=== PATIENT | male | born 1955 | race Caucasian/White ===

== ENCOUNTER 2020-05-08 11:41 | Emergency (ER) | payer OTHER, SELFPAY ==
--- NOTE | 2020-05-08 14:08 | ED_ITS ---
HPI - Abdominal Pain General Chief Complaint: Abdominal Pain Stated Complaint: back pain Time Seen by Provider: 05/08/20 14:08 Source: patient Mode of arrival: ambulatory Limitations: no limitations History of Present Illness HPI narrative: Patient with left lower abdominal pain yesterday. no Flank pain, no dysuria, no hematuria, no fever denies vomiting and diarrhea MD elicited complaint: abdominal pain Onset (ago): day(s) Quality: stabbing Radiation: LLQ Related Data Previous Rx's Medication Instructions Recorded ciprofloxacin HCl [Cipro] 500 mg PO BID #20 tab 05/08/20 metronidazole [Flagyl] 500 mg PO TID #30 tab 05/08/20 Allergies Allergy/AdvReac Type Severity Reaction Status Date / Time No Known Allergies Allergy Verified 05/08/20 14:26 Review of Systems Constitutional: Reports no additional constitutional complaints Eyes: Reports no additional eye complaints Denies dizziness Cardiovascular: Reports no additional cardiovascular complaints Respiratory: Reports as per HPI Gastrointestinal: Reports no additional gastrointestinal complaints Musculoskeletal: Reports no additional musculoskeletal complaints Skin/Breast: Denies rash Reports system reviewed and no additional complaints, except as documented, Denies dizziness and Denies Sensory deficit (Neuro) Psychiatric: Denies anxiety Physical Exam Vital Signs: Vital Signs: Vital Signs Temp Pulse Resp BP Pulse Ox 05/08/20 14:29 98.2 F 70 147/94 H 98 05/08/20 14:21 98.2 F 69 18 147/94 H 98 Body Mass Index 32.5 Const: General: healthy appearing Nutritional Appearance: average body habitus Orientation/consciousness: oriented to person and patient oriented x3 Limitations: no limitations HENMT: Head: Yes normal to inspection Ears: external ears normal General nose exam: Normal external nose present Mouth: Normal oral and palatal mucosa present and oropharynx normal Throat: Yes posterior oropharynx normal Eyes: General: appearance normal, both eyes and all related structures Neck: Other: supple Neck: Yes normal visual inspection Chest: Chest palpation & inspection: normal inspection of the chest Resp: Auscultation: clear to auscultation bilaterally Cardio: Jugular venous distension: no JVD Rate: regular rate Rhythm: regular rhythm Heart sounds: S1 normal heart sound present and S2 normal heart sound present GI: Other: left lower quadrant pain with some guarding Inspection: Yes normal to inspection Auscultation: normal bowel sounds : General: Yes no CVA tenderness Back/Spine/Pelvis: Back: no CVA tenderness Skin: General skin exam: no rashes or lesions noted Neuro: General: oriented to person and patient oriented x3 Cranial nerves: Yes CN's II-XII intact bilaterally Motor exam (neuro): 5/5 motor strength present throughout Sensory Exam: No Sensory deficit (Neuro) Extrem: General: Yes normal to inspection Psych: Appearance: grossly normal Course Course Course Narrative: appear more comfortable MDM - Abdominal Pain MDM Narrative Medical decision making narrative: patient with no clinical evidence of hernia, not acting like kidney stone, CT with diverticulitis, will dc home Differential Diagnosis Differential diagnosis: Likely diverticulitis and renal colic Lab Data Result diagrams: 05/08/20 14:44 05/08/20 14:44 Labs: Lab Results 05/08/20 05/08/20 05/08/20 Range/Units 14:44 14:44 14:44 WBC 11.9 H (4.8-10.8) X10*3/uL RBC 5.44 (4.60-5.80) X10*6/uL Hgb 15.6 (14.0-18.0) g/dl Hct 47.4 (42-52) % MCV 87.1 (80-98) fL MCH 28.7 (27.0-33.0) pg MCHC 32.9 (31.0-36.0) g/dl RDW 12.6 (11.0-16.0) % Plt Count 296 (160-400) X10*3/uL MPV 9.6 (9.4-12.4) fL Immature Gran % (Auto) 0.3 (0.0-0.4) % Neut % (Auto) 61.6 (45-73) % Lymph % (Auto) 25.3 (20-40) % [place] % (Auto) 9.9 (2-11) % Eos % (Auto) 2.4 (0-4) % Baso % (Auto) 0.5 (0-2) % Lymph # (Auto) 3.0 (1.2-4.9) X10*3/uL [place] # (Auto) 1.2 (0.1-1.2) X10*3/uL Eos # (Auto) 0.3 (0.0-0.4) X10*3/uL Baso # (Auto) 0.1 (0.0-0.2) X10*3/uL Abs Immat Gran (auto) 0.03 (0.00-0.03) X10*3/uL Absolute Neuts (auto) 7.4 (2.0-8.3) X10*3/uL Absolute Nucleated RBC 0.000 (0.0-0.012) X10*3/uL Nucleated RBC % (auto) 0.0 (0.0-0.2) /100WBC Sodium 139 (135-145) mmol/L Potassium 4.4 (3.3-5.1) mmol/l Chloride 103 (96-108) mmol/L Carbon Dioxide 27 (22-29) mmol/L Anion Gap 13 (12-20) BUN 13 (9-16) mg/dL Creatinine 1.08 (0.5-1.4) mg/dL Estim Creat Clear Calc 81.6 Estimated GFR > 60 Random Glucose 90 (60-115) mg/dL Calcium 8.9 (8.4-10.2) mg/dL Urine Color YELLOW Urine Appearance CLEAR Urine pH 6.0 (5.0-8.0) Ur Specific [place] 1.025 (1.005-1.025) Urine Protein NEG (NEG-TRACE) MG/DL Urine Glucose (UA) NEG (NEG) MG/DL Urine Ketones NEG (NEG) MG/DL Urine Blood 1+ H (NEG) Urine Nitrite NEG (NEG) Ur Leukocyte Esterase NEG (NEG) Urine RBC 1-4 (0) /HPF Urine WBC 0-2 (0-4) /HPF Ur Squamous Epith Cells NONE /LPF Urine Bacteria TRACE /LPF Urine Mucus 1+ /LPF Discharge Plan Discharge Clinical Impression: Diverticulitis Patient Disposition: Home, Self-Care Instructions: Diverticulitis (ED) Additional Instructions: clear liquid diet for 72 hours. Must follow up pulmonary nodule with your doctor Prescriptions: New ciprofloxacin HCl [Cipro] 500 mg tablet 500 mg PO BID Qty: 20 RF: 0 metronidazole [Flagyl] 500 mg tablet 500 mg PO TID Qty: 30 RF: 0 PMFSH Past Medical History Surgical History History of rotator cuff surgery Social History Social History Smoking Status: Never smoker Use of substances other than those prescribed or required for medical reasons: No Advance Directives: No Advance Directives Information Provided: No
[2020-05-08 14:21] VITALS: BP 147/94; PULSE 69; RESP 18; TEMP 36.8; O2SAT 98; BMI 32.5
--- NOTE | 2020-05-08 14:26 | CT_ITS ---
EXAMINATION: CT ABDOMEN AND PELVIS WITHOUT CONTRAST CLINICAL INFORMATION: Left lower quadrant pain with guarding COMPARISON: None TECHNIQUE: Multidetector volumetric imaging was performed from the superior aspect of the liver through the pubic symphysis. Sagittal and coronal reformatted images were obtained on the technologist's workstation. This CT examination was performed using dose optimization techniques as appropriate, variously including the following: *Automated exposure control *Adjustment of mA and/or kV according to patient size (this includes techniques or standardized protocols for targeted exams where dose is matched to indication/reason for exam; i.e. extremities or head) *Use of iterative reconstruction technique DLP: 794 mGy-cm FINDINGS: LUNG BASES: The visualized lung bases are unremarkable aside from the presence of a 5 mm subpleural posterior lateral left lower lobe nodule (series 4 image 68). LIVER, GALLBLADDER, AND BILIARY TREE: The liver is normal in size, shape, and attenuation. No focal hepatic lesion or biliary ductal dilatation is present. The gallbladder is unremarkable with no evidence of radiopaque gallstones, gallbladder wall thickening, or obvious pericholecystic inflammatory changes. PANCREAS: Unremarkable. SPLEEN: Unremarkable. ADRENAL GLANDS: There is a small 1 cm benign left-sided adrenal myelolipoma. The adrenal glands appear otherwise unremarkable KIDNEYS AND URETERS: The kidneys are normal in size, shape, and attenuation. No hydronephrosis, hydroureter, or calculi seen. No perinephric stranding. BLADDER: Unremarkable. GASTROINTESTINAL TRACT: There is evidence of colonic diverticulosis most prominent in the sigmoid. Diverticulitis is present with thickening at the junction of the descending colon and proximal sigmoid with associated inflammatory changes in the surrounding fat. No abscess or extraluminal air is seen. The remainder of the colon appears unremarkable. The appendix is normal. The small bowel and visualized stomach appear normal. ABDOMINAL WALL: Bilateral small direct inguinal hernias are present containing only fat, right greater than left. A tiny periumbilical hernia seen containing only fat. LYMPH NODES: Normal. VASCULAR: Unremarkable. PELVIC VISCERA: The prostate is enlarged with central calcifications measuring 6.4 x 4.8 x 5.8 cm. The seminal vesicles appear normal. No free pelvic fluid is seen. OSSEOUS STRUCTURES: Unremarkable. CT/CT abdomen pelvis wo con IMPRESSION: 1. Acute uncomplicated colonic diverticulitis at junction of descending colon and sigmoid. 2. Benign 1 cm left adrenal myelolipoma. 3. Bilateral small inguinal hernias containing only fat along with a tiny periumbilical hernia containing only fat. 4. BPH 5. 5 mm left lower lobe lung nodule. Only in high risk patients which follow up even be considered and is still optional. According to the UPDATED 2017 Fleischner Society recommendations, the advised follow-up imaging for solid nodules < 6 mm is: LOW RISK PATIENT: No routine follow-up. HIGH RISK PATIENT: Optional CT at 12 months.
[2020-05-08 14:29] VITALS: BP 147/94; PULSE 70; TEMP 36.8; O2SAT 98
--- NOTE | 2020-05-08 14:34 | PC.NURSE ---
PT REPORTING LLQ PAIN SINCE YESTERDAY SQUEEZING , WORSE WITH MOVEMNT 10/10, 6/10 AT REST. NO HX GI ISSUES. DENIES URINARY SXS. DENIES N/V/D, FEVERS. LAST BM 3 HRS AGO. VS WNL. A&OX3, SPEAKING IN CLEAR FULL SENTENCES. RESP EVEN AND NONLABOURED. LABS TO BE DRAWN. PT PROVIDING URINE SPECIMEN AT THIS TIME.
[2020-05-08 14:50] LABS: MANUAL DIFF FLAG NO
[2020-05-08 14:52] LABS: Basophils Absolute Auto 0.1 X10*3/uL (0.0-0.2); Basophils Percent Auto 0.5 % (0-2); Eosinophils Absolute Auto 0.3 X10*3/uL (0.0-0.4); Eosinophils Percent Auto 2.4 % (0-4); Hematocrit 47.4 % (42-52); Hemoglobin 15.6 g/dl (14.0-18.0); Imm Gran Abs Auto 0.03 X10*3/uL (0.00-0.03); Imm Gran Pct Auto 0.3 % (0.0-0.4); Lymphocytes Percent Auto 25.3 % (20-40); Mean Corpuscular HGB Conc 32.9 g/dl (31.0-36.0); Mean Corpuscular Hemoglobin 28.7 pg (27.0-33.0); Mean Corpuscular Volume 87.1 fL (80-98); Mean Platelet Volume 9.6 fL (9.4-12.4); Monocytes Absolute Auto 1.2 X10*3/uL (0.1-1.2); Monocytes Percent Auto 9.9 % (2-11); Neutrophils Absolute Auto 7.4 X10*3/uL (2.0-8.3); Neutrophils Percent Auto 61.6 % (45-73); Platelet Count 296 X10*3/uL (160-400); Red Blood Count 5.44 X10*6/uL (4.60-5.80); Red Cell Distribution Width 12.6 % (11.0-16.0); White Blood Count 11.9 X10*3/uL (4.8-10.8)
[2020-05-08 14:53] LABS: Color Urine YELLOW; Glucose Urine UA NEG (NEG); Leukocyte Esterase Urine NEG (NEG); Nitrite Urine NEG (NEG); Specific Gravity - Urine 1.025 (1.005-1.025); Urine Blood 1+ (NEG); Urine Ketones NEG (NEG); Urine Protein NEG (NEG-TRACE)
[2020-05-08 14:54] LABS: Appearance Urine CLEAR
[2020-05-08 15:04] LABS: Bacteria Urine TRACE /LPF; Mucus Urine 1+ /LPF; WBC Urine 0-2 /HPF (0-4)
[2020-05-08] MEDS: Ketorolac Tromethamine 30 MG/ML VIAL IVPUSH (15:10)
[2020-05-08 15:17] LABS: Anion Gap 13 (12-20); Blood Urea Nitrogen 13 mg/dL (9-16); Calcium 8.9 mg/dL (8.4-10.2); Carbon Dioxide 27 mmol/L (22-29); Chloride 103 mmol/L (96-108); Creatinine Clr Calc Pharmacy 81.6; Estimated Glomerular Filt Rate > 60; Glucose Random 90 mg/dL (60-115); Potassium 4.4 mmol/l (3.3-5.1); Sodium 139 mmol/L (135-145)
--- NOTE | 2020-05-08 16:04 | PC.NURSE ---
PT RESTING COMFORTABLY IN STRETCHER. AWAITING CT RESULTS
[2020-05-08] MEDS: metroNIDAZOLE 500 MG TABLET PO (16:50)
[2020-05-08] MEDS: levoFLOXacin 500 MG TABLET PO (16:50)
[2020-05-08 16:51] VITALS: BP 154/94; PULSE 79; RESP 16; TEMP 36.8; O2SAT 99
== END 2020-05-08 17:06 | disposition home or self-care (01) ==
PROVIDERS: Emergency Provider Emergency Medicine; PCP Student in an Organized Health Care Education/Training Program
DX: K57.32 Diverticulitis of large intestine without perforation or abscess without bleeding (principal); M54.5 Low back pain; Z79.899 Other long term (current) drug therapy
CPT/HCPCS: 36415; 74176; 80048; 81001; 85025; 96374; 99284; J1885

== ENCOUNTER 2020-05-21 08:59 | Outpatient (REF) | payer OTHER, SELFPAY ==
[2020-05-21 10:53] LABS: Cholesterol 168 mg/dL; HDL Cholesterol 35 mg/dL; LDL Cholesterol Calculated 94 mg/dl; Triglycerides 198 mg/dL
[2020-05-21 11:16] LABS: Prostate Specific Antigen 2.42 ng/mL (<0.05-4.0)
== END 2020-05-21 09:00 | disposition home or self-care (01) ==
LOC: HO.10HDL 08:59
PROVIDERS: Visit Provider Internal Medicine
DX: E78.5 Hyperlipidemia, unspecified (principal); N40.0 Benign prostatic hyperplasia without lower urinary tract symptoms; K57.90 Diverticulosis of intestine, part unspecified, without perforation or abscess without bleeding
CPT/HCPCS: 80061; 84153

== ENCOUNTER 2020-07-06 12:36 | Outpatient (REF) | payer OTHER, SELFPAY ==
[2020-07-06 14:02] LABS: Basophils Absolute Auto 0.1 X10*3/uL (0.0-0.2); Basophils Percent Auto 0.8 % (0-2); Eosinophils Absolute Auto 0.5 X10*3/uL (0.0-0.4); Eosinophils Percent Auto 4.9 % (0-4); Hematocrit 44.8 % (42-52); Hemoglobin 14.6 g/dl (14.0-18.0); Imm Gran Abs Auto 0.03 X10*3/uL (0.00-0.03); Imm Gran Pct Auto 0.3 % (0.0-0.4); Lymphocytes Absolute Auto 2.5 X10*3/uL (1.2-4.9); Lymphocytes Percent Auto 25.7 % (20-40); MANUAL DIFF FLAG NO; Mean Corpuscular HGB Conc 32.6 g/dl (31.0-36.0); Mean Corpuscular Hemoglobin 28.2 pg (27.0-33.0); Mean Corpuscular Volume 86.5 fL (80-98); Mean Platelet Volume 10.4 fL (9.4-12.4); Monocytes Absolute Auto 1.1 X10*3/uL (0.1-1.2); Monocytes Percent Auto 10.9 % (2-11); Neutrophils Absolute Auto 5.6 X10*3/uL (2.0-8.3); Neutrophils Percent Auto 57.4 % (45-73); Platelet Count 292 X10*3/uL (160-400); Red Blood Count 5.18 X10*6/uL (4.60-5.80); Red Cell Distribution Width 13.2 % (11.0-16.0); White Blood Count 9.7 X10*3/uL (4.8-10.8)
[2020-07-06 14:23] LABS: Anion Gap 10 (12-20); Blood Urea Nitrogen 17 mg/dL (9-16); C Reactive Protein 2.17 mg/dL (< or = 0.50); Calcium 8.9 mg/dL (8.4-10.2); Carbon Dioxide 29 mmol/L (22-29); Chloride 105 mmol/L (96-108); Estimated Glomerular Filt Rate > 60; Glucose Random 99 mg/dL (60-115); Sodium 140 mmol/L (135-145); Uric Acid 5.6 mg/dL (3.4-7.0)
== END 2020-07-06 12:37 | disposition home or self-care (01) ==
LOC: HO.10HDL 12:36
PROVIDERS: PCP Internal Medicine; Visit Provider Internal Medicine
DX: M25.571 Pain in right ankle and joints of right foot (principal); M25.471 Effusion, right ankle
CPT/HCPCS: 36415; 80048; 84550; 85025; 86140

== ENCOUNTER 2020-09-17 10:28 | Outpatient (REF) | payer OTHER, SELFPAY ==
--- NOTE | ~2020-09-17 | FL_ITS ---
EXAMINATION: XR GI SERIES CLINICAL INFORMATION: Dysphagia. COMPARISON: None TECHNIQUE: Routine upper GI air contrast study was performed. FINDINGS: Following oral administration of thick barium and effervescent granules, there is normal propagation of bolus from the oral cavity through the pharynx, esophagus into stomach without any evidence of obstruction, narrowing or stricture. The course, caliber and peristalsis of the esophagus is normal. On placing patient supine and prone lying, there is normal course, caliber and peristalsis of the stomach. There is a small hiatal hernia without reflux. The duodenal bulb and the sweep is normal in its course and caliber. The mucosal pattern of the stomach and the duodenum is normal. However, there are mild gastric secretions present. FLUOROSCOPY TIME: 1.7 minutes DOSE AREA PRODUCT: 41.368 uGy-m2 (microgray-meter squared) FL/FL upper GI series IMPRESSION: Small hiatal hernia. Increased gastric secretions likely secondary to gastritis. No focal gastroduodenal erosions or ulceration seen.
== END 2020-09-17 10:29 | disposition home or self-care (01) ==
LOC: HO.XRAY 10:28
PROVIDERS: PCP Internal Medicine; Visit Provider Internal Medicine
DX: R13.10 Dysphagia, unspecified (principal)
CPT/HCPCS: 74240

== ENCOUNTER 2021-02-25 10:25 | Outpatient (REF) | payer OTHER, SELFPAY ==
--- NOTE | ~2021-02-25 | XR_ITS ---
EXAMINATION: XR CHEST CLINICAL INFORMATION: Cough. Congestion. Evaluate for infiltrate. COMPARISON: None TECHNIQUE: 2 views of the chest were obtained. FINDINGS: The lungs are clear. The cardiomediastinal silhouette is normal in size. There is no pleural effusion or pneumothorax. No acute osseous abnormality. XR/XR chest 2V IMPRESSION: No acute cardiopulmonary findings.
== END 2021-02-25 10:26 | disposition home or self-care (01) ==
LOC: HO.XRAY 10:25
PROVIDERS: PCP Internal Medicine; Visit Provider Internal Medicine
DX: R05 Cough (principal); R09.89 Other specified symptoms and signs involving the circulatory and respiratory systems
CPT/HCPCS: 71046

== ENCOUNTER 2021-06-04 10:06 | Emergency (ER) | payer OTHER, SELFPAY ==
--- NOTE | ~2021-06-04 | XR_ITS ---
EXAMINATION: XR FOOT, RIGHT CLINICAL INFORMATION: Injury to the right foot. Pain in the right foot 4th and 5th digits. COMPARISON: None TECHNIQUE: AP, lateral, and oblique views of the right foot. FINDINGS: Comminuted fractures through the proximal and mid shaft of the 4th proximal phalanx is noted without significant displacement. No additional fractures are noted. Joints are unremarkable. Small plantar calcaneal spur. No evidence of soft tissue air or radiopaque foreign body. Degenerative changes are noted at the talonavicular articulation with subarticular cystic changes and articular surface irregularity. XR/XR foot RT min 3V IMPRESSION: Comminuted fractures through the proximal and mid shaft of the left foot 4th proximal phalanx, without intra-articular extension.
[2021-06-04 10:51] VITALS: BP 131/76; PULSE 74; RESP 16; TEMP 36.3; O2SAT 97; BMI 31.3
--- NOTE | 2021-06-04 12:15 | ED.LOWEXIN ---
HPI - Extremity Injury (Lower) General Chief Complaint: Extremity Injury, Lower Stated Complaint: toe injury Time Seen by Provider: 06/04/21 12:14 History of Present Illness HPI Narrative: Patient complains of right 4th toe pain after accidentally kicking the faucet in the shower this morning, no other injury he did not fall and there is no other complaint Related Data Previous Rx's Medication Instructions Recorded ciprofloxacin HCl 500 mg tablet 500 mg PO BID #20 tab 05/08/20 (Cipro) metronidazole 500 mg tablet 500 mg PO TID #30 tab 05/08/20 (Flagyl) Allergies Allergy/AdvReac Type Severity Reaction Status Date / Time No Known Allergies Allergy Verified 05/08/20 14:26 Review of Systems Review of Systems: Positive for right 4th toe pain Negatives are no headache no head injury no neck pain no back pain no numbness weakness or tingling no other extremity pain or injury Yes all other systems are reviewed and are negative PMFSH Past Medical History Source: nursing notes reviewed Surgical History History of rotator cuff surgery Social History Social History Advance Directives: No Advance Directives Information Provided: Yes Physical Exam Vital Signs: Vital Signs: Last Vital Signs Temp 97.4 F 06/04/21 10:51 Pulse 74 06/04/21 10:51 Resp 16 06/04/21 10:51 BP 131/76 06/04/21 10:51 Pulse Ox 97 06/04/21 10:51 Body Mass Index 31.3 General appearance no acute distress Head is normocephalic atraumatic Neck is supple nontender Respiratory no distress Extremities full range of motion x4 The left 4th toe has mild ecchymosis tenderness and minimal swelling in the proximal phalanx, skin is intact no obvious deformity and neurovascular intact Other extremities normal Neuro no focal motor or sensory deficits Course Course Course Narrative: X-ray showed a minimally displaced left 4th toe proximal phalanx fracture, jabier tape and postop shoe were provided Discharge Plan Discharge Clinical Impression: Closed fracture of fourth toe of right foot Patient Disposition: Home, Self-Care Additional Instructions: Activity as tolerated is okay Use postop shoe for comfort, or you can use a regular shoe as well if it is comfortable Follow with orthopedist or workers compensation administrator as needed Toe fractures usually heal well with out any major treatment Prescriptions: No Action ciprofloxacin HCl [Cipro] 500 mg tablet 500 mg PO BID Qty: 20 RF: 0 metronidazole [Flagyl] 500 mg tablet 500 mg PO TID Qty: 30 RF: 0 Referrals: Shakira Lewis PA-C [Physician [employer]] - 2 days Augustine Osborne DPM [Physician] - 2 days Interventions: ED Discharge Assessment Last Done: 06/04/21 12:39 Discharge Date/Time: 06/04/21 12:40
== END 2021-06-04 12:40 | disposition home or self-care (01) ==
PROVIDERS: Emergency Provider Emergency Medicine Emergency Medical Services; PCP Internal Medicine
DX: S92.511A Displaced fracture of proximal phalanx of right lesser toe(s), initial encounter for closed fracture (principal); W22.09XA Striking against other stationary object, initial encounter; Y93.E1 Activity, personal bathing and showering; Y92.002 Bathroom of unspecified non-institutional (private) residence as the place of occurrence of the external cause; Y99.9 Unspecified external cause status
CPT/HCPCS: 73630; 99283

== ENCOUNTER 2021-06-20 07:37 | Outpatient (REF) | payer OTHER, SELFPAY ==
--- NOTE | ~2021-06-20 | XR_ITS ---
EXAMINATION: XR FOOT, RIGHT CLINICAL INFORMATION: Displaced fracture of the fifth metatarsal COMPARISON: 06/04/2021 TECHNIQUE: AP, lateral, and oblique views of the right foot. FINDINGS: The fourth digit proximal phalanx fracture is again noted with unchanged alignment from prior. Slight cortical disruption again seen. Mild fourth digit soft tissue swelling. There is joint space narrowing at the talonavicular joint with osteophyte formation. Joint spaces are otherwise maintained. Small plantar heel spur. XR/XR foot RT min 3V IMPRESSION: Unchanged alignment of the fourth digit proximal phalanx fracture. Degenerative change at the talonavicular joint.
== END 2021-06-20 07:38 | disposition home or self-care (01) ==
LOC: HO.HOSX 07:37
PROVIDERS: Visit Provider Physician Assistant
DX: S92.911D Unspecified fracture of right toe(s), subsequent encounter for fracture with routine healing (principal)
CPT/HCPCS: 73630; 99202

== ENCOUNTER 2021-08-23 08:08 | Outpatient (REF) | payer OTHER, SELFPAY ==
[2021-08-23 10:25] LABS: MANUAL DIFF FLAG NO
[2021-08-23 10:26] LABS: Basophils Percent Auto 0.6 % (0-2); Eosinophils Absolute Auto 0.3 X10*3/uL (0.0-0.4); Eosinophils Percent Auto 4.6 % (0-4); Hematocrit 45.8 % (42.0-52.0); Imm Gran Abs Auto 0.02 X10*3/uL (0.00-0.03); Imm Gran Pct Auto 0.3 % (0.0-0.4); Lymphocytes Absolute Auto 2.6 X10*3/uL (1.2-4.9); Lymphocytes Percent Auto 40.4 % (20-40); Mean Corpuscular HGB Conc 32.8 g/dl (31.0-36.0); Mean Corpuscular Hemoglobin 28.6 pg (27.0-33.0); Mean Corpuscular Volume 87.4 fL (80.0-98.0); Mean Platelet Volume 9.7 fL (9.4-12.4); Monocytes Absolute Auto 0.7 X10*3/uL (0.1-1.2); Monocytes Percent Auto 10.4 % (2-11); Neutrophils Absolute Auto 2.8 x10*3/uL (2.0-8.3); Neutrophils Percent Auto 43.7 % (45-73); Platelet Count 279 X10*3/uL (160-400); Red Blood Count 5.24 X10*6/uL (4.60-5.80); Red Cell Distribution Width 12.7 % (11.0-16.0); White Blood Count 6.3 X10*3/uL (4.8-10.8)
[2021-08-23 10:39] LABS: Alanine Aminotransferase 16 U/L (0-40); Albumin Level 3.9 g/dL (3.5-5.0); Alkaline Phosphatase 53 U/L (39-117); Anion Gap 11 (12-20); Aspartate Amino Transferase 19 U/L (5-37); Bilirubin Total 1.4 mg/dL (0.0-1.0); Blood Urea Nitrogen 17 mg/dL (9-16); Calcium 8.9 mg/dL (8.4-10.2); Carbon Dioxide 26 mmol/L (22-29); Chloride 106 mmol/L (96-108); Cholesterol 204 mg/dL; Estimated Glomerular Filt Rate > 60; Glucose Fasting 91 mg/dL (60-99); HDL Cholesterol 39 mg/dL; LDL Cholesterol Calculated 137 mg/dl; Potassium 4.4 mmol/L (3.3-5.1); Sodium 139 mmol/L (135-145); Total Protein 6.4 g/dL (6.5-8.0); Triglycerides 144 mg/dL
[2021-08-23 10:58] LABS: Prostate Specific Antigen Scr 1.93 ng/mL (<0.05-4.0)
== END 2021-08-23 08:09 | disposition home or self-care (01) ==
LOC: HO.10HDL 08:08
PROVIDERS: Visit Provider Internal Medicine
DX: Z12.5 Encounter for screening for malignant neoplasm of prostate (principal); K21.9 Gastro-esophageal reflux disease without esophagitis; R35.1 Nocturia; M54.2 Cervicalgia
CPT/HCPCS: 36415; 80053; 80061; 84153; 85025

== ENCOUNTER 2021-11-24 09:24 | Outpatient (REF) | payer MEDICAID, SELFPAY ==
[2021-11-24 10:18] LABS: Cholesterol 191 mg/dL; HDL Cholesterol 37 mg/dL; LDL Cholesterol Calculated 109 mg/dl; Triglycerides 225 mg/dL
== END 2021-11-24 09:25 | disposition home or self-care (01) ==
LOC: HO.LAB 09:24
PROVIDERS: PCP Internal Medicine; Visit Provider Internal Medicine
DX: E78.00 Pure hypercholesterolemia, unspecified (principal)
CPT/HCPCS: 36415; 80061

== ENCOUNTER 2022-06-29 11:26 | Outpatient (REF) | payer MEDICAID, SELFPAY ==
[2022-06-29 13:40] LABS: MANUAL DIFF FLAG NO
[2022-06-29 13:41] LABS: Basophils Absolute Auto 0.1 X10*3/uL (0.0-0.2); Basophils Percent Auto 0.9 % (0-2); Eosinophils Absolute Auto 0.3 X10*3/uL (0.0-0.4); Hematocrit 47.4 % (42.0-52.0); Hemoglobin 15.5 g/dl (14.0-18.0); Imm Gran Abs Auto 0.02 X10*3/uL (0.00-0.03); Imm Gran Pct Auto 0.3 % (0.0-0.4); Lymphocytes Absolute Auto 2.1 X10*3/uL (1.2-4.9); Mean Corpuscular HGB Conc 32.7 g/dl (31.0-36.0); Mean Corpuscular Hemoglobin 28.9 pg (27.0-33.0); Mean Corpuscular Volume 88.4 fL (80.0-98.0); Mean Platelet Volume 10.1 fL (9.4-12.4); Monocytes Absolute Auto 0.7 X10*3/uL (0.1-1.2); Monocytes Percent Auto 10.8 % (2-11); Neutrophils Absolute Auto 3.5 x10*3/uL (2.0-8.3); Platelet Count 313 X10*3/uL (160-400); Red Blood Count 5.36 X10*6/uL (4.60-5.80); Red Cell Distribution Width 13.2 % (11.0-16.0); White Blood Count 6.7 X10*3/uL (4.8-10.8)
[2022-06-29 14:04] LABS: Prothrombin Time 11.6 SEC (10.0-13.1)
[2022-06-29 14:06] LABS: Partial Thromboplastin Time 33.6 SEC (26.0-36.4)
[2022-06-29 14:57] LABS: Alanine Aminotransferase 17 U/L (0-40); Albumin Level 4.1 g/dL (3.5-5.0); Alkaline Phosphatase 61 U/L (39-117); Anion Gap 12 (12-20); Aspartate Amino Transferase 18 U/L (5-37); Blood Urea Nitrogen 16 mg/dL (9-16); Calcium 9.2 mg/dL (8.4-10.2); Carbon Dioxide 28 mmol/L (22-29); Chloride 105 mmol/L (96-108); Estimated Glomerular Filt Rate > 60; Glucose Random 91 mg/dL (60-115); Iron 92 mcg/dL (45-160); Percent Iron Saturation 33 % (15-50); Potassium 4.7 mmol/L (3.3-5.1); Sodium 140 mmol/L (135-145); Total Iron Binding Capacity 278 mcg/dL (228-428); Total Protein 6.6 g/dL (6.5-8.0); Unsaturated Iron Binding 186 ug/dL
== END 2022-06-29 11:27 | disposition home or self-care (01) ==
LOC: HO.10HDL 11:26
PROVIDERS: Visit Provider Internal Medicine
DX: R04.0 Epistaxis (principal)
CPT/HCPCS: 36415; 80053; 83540; 85025; 85610; 85730

== ENCOUNTER 2022-07-11 07:50 | Outpatient (REF) | payer MEDICAID, SELFPAY ==
--- NOTE | ~2022-07-11 | CT_ITS ---
EXAMINATION: CT MAXILLOFACIAL WITHOUT CONTRAST CLINICAL INFORMATION: Severe epistaxis. COMPARISON: None. TECHNIQUE: Multidetector helical imaging was performed in the axial plane with generation of coronal and sagittal reformatted images. This CT examination was performed using dose optimization techniques as appropriate, variously including the following: *Automated exposure control *Adjustment of mA and/or kV according to patient size (this includes techniques or standardized protocols for targeted exams where dose is matched to indication/reason for exam; i.e. extremities or head) *Use of iterative reconstruction technique DLP: 138 mGy-cm. FINDINGS: The frontal sinuses are clear. There is minimal ethmoid mucosal thickening. The sphenoid sinuses are clear. Maxillary sinuses are clear. The ostiomeatal units are clear. Prominent Adan cells are noted encroaching on the ethmoidal infundibula. The nasal septum is deviated towards the right. The ethmoid roofs are symmetric. The lamina papyracea are intact. The carotid impressions are covered with thin bone. No maxillary periapical disease is seen. The mastoid air cells and visualized middle ear cavities are well aerated. The orbits are normal. The TMJs are unremarkable. The imaged portions of the brain demonstrate no acute abnormality. CT/CT sinus wo IV con IMPRESSION: Minimal ethmoid mucosal thickening. Paranasal sinuses are otherwise clear without fluid levels. No evidence of sinonasal lesion. Rightward deviation of the nasal septum.
== END 2022-07-11 07:51 | disposition home or self-care (01) ==
LOC: HO.CT 07:50
PROVIDERS: PCP Internal Medicine; Visit Provider Internal Medicine
DX: R04.0 Epistaxis (principal)
CPT/HCPCS: 70486

== ENCOUNTER 2022-09-11 09:03 | Outpatient (REF) | payer MEDICAID, SELFPAY | END 2022-09-11 09:04 | disposition home or self-care (01) | LOC: HO.10HDL 09:03 | PROVIDERS: Visit Provider Internal Medicine | DX: Z13.89 Encounter for screening for other disorder (principal) ==

== ENCOUNTER 2022-09-11 09:16 | Outpatient (REF) | payer MEDICAID, SELFPAY ==
[2022-09-11 10:40] LABS: MANUAL DIFF FLAG NO
[2022-09-11 10:45] LABS: Basophils Absolute Auto 0.1 X10*3/uL (0.0-0.2); Eosinophils Absolute Auto 0.4 X10*3/uL (0.0-0.4); Hematocrit 47.1 % (42.0-52.0); Hemoglobin 15.4 g/dl (14.0-18.0); Imm Gran Abs Auto 0.02 X10*3/uL (0.00-0.03); Imm Gran Pct Auto 0.3 % (0.0-0.4); Lymphocytes Absolute Auto 2.7 X10*3/uL (1.2-4.9); Lymphocytes Percent Auto 38.2 % (20-40); Mean Corpuscular HGB Conc 32.7 g/dl (31.0-36.0); Mean Corpuscular Hemoglobin 28.1 pg (27.0-33.0); Mean Corpuscular Volume 85.9 fL (80.0-98.0); Mean Platelet Volume 9.8 fL (9.4-12.4); Monocytes Absolute Auto 0.6 X10*3/uL (0.1-1.2); Monocytes Percent Auto 8.8 % (2-11); Neutrophils Absolute Auto 3.3 x10*3/uL (2.0-8.3); Neutrophils Percent Auto 46.7 % (45-73); Platelet Count 287 X10*3/uL (160-400); Red Blood Count 5.48 X10*6/uL (4.60-5.80); Red Cell Distribution Width 12.9 % (11.0-16.0); White Blood Count 7.1 X10*3/uL (4.8-10.8)
[2022-09-11 10:57] LABS: Anion Gap 12 (12-20); Blood Urea Nitrogen 13 mg/dL (9-16); Calcium 8.7 mg/dL (8.4-10.2); Carbon Dioxide 26 mmol/L (22-29); Chloride 106 mmol/L (96-108); Cholesterol 215 mg/dL; Estimated Glomerular Filt Rate > 60; Glucose Random 92 mg/dL (60-115); HDL Cholesterol 45 mg/dL; LDL Cholesterol Calculated 129 mg/dl; Potassium 4.5 mmol/L (3.3-5.1); Sodium 139 mmol/L (135-145); Triglycerides 205 mg/dL
== END 2022-09-11 09:17 | disposition home or self-care (01) ==
LOC: HO.10HDL 09:16
PROVIDERS: Visit Provider Internal Medicine
DX: K21.9 Gastro-esophageal reflux disease without esophagitis (principal); R04.0 Epistaxis
CPT/HCPCS: 36415; 80048; 80061; 85025

== ENCOUNTER 2022-09-18 12:27 | Outpatient (REF) | payer MEDICARE, MEDICAID, SELFPAY ==
[2022-09-18 14:12] LABS: C Reactive Protein < 0.10 mg/dL (< or = 0.50); Troponin-I High Sensitivity < 3.5 ng/L (<3.5-35.0)
== END 2022-09-18 12:28 | disposition home or self-care (01) ==
LOC: HO.10HDL 12:27
PROVIDERS: Visit Provider Internal Medicine
DX: R07.9 Chest pain, unspecified (principal)
CPT/HCPCS: 36415; 82550; 84484; 86140

== ENCOUNTER → 2022-09-29 07:57 | Outpatient (REF) | payer MEDICARE, MEDICAID, SELFPAY ==
--- NOTE | 2022-09-29 08:06 | CA_ITS ---
Acquisition Time: 2022-09-29 08:19:37 Total Exercise Time: 00:08:22 Test Indications: CHEST PAIN Medications: SEE H Protocol: ROSI Max HR: 141 BPM 91% of Pred: 154 BPM Max BP: 160/070 mmHG Max Work Load: 10.1 METS PT EXERCISED ON STD ROSI PROTOCOL FOR8:22 INTO STAGE 3. NO CP OR SOB NML EKG. NML BP. PT STEPPED OFF TREADMILL AT 8:22. CLINICALLY AND ELEC NEG. Referred By: Tyrese Zhu Overread By: OWEN ZHU MD
== END ==
LOC: HO.CARD 07:57
PROVIDERS: Visit Provider Internal Medicine
DX: R07.89 Other chest pain (principal)
CPT/HCPCS: 93017

== ENCOUNTER 2023-06-27 08:35 | Outpatient (REF) | payer MEDICARE, MEDICAID, SELFPAY ==
[2023-06-27 10:20] LABS: MANUAL DIFF FLAG NO
[2023-06-27 10:30] LABS: Basophils Absolute Auto 0.1 X10*3/uL (0.0-0.2); Basophils Percent Auto 0.9 % (0-2); Eosinophils Absolute Auto 0.2 X10*3/uL (0.0-0.4); Hematocrit 47.7 % (42.0-52.0); Hemoglobin 15.7 g/dl (14.0-18.0); Imm Gran Abs Auto 0.01 X10*3/uL (0.00-0.03); Imm Gran Pct Auto 0.1 % (0.0-0.4); Lymphocytes Absolute Auto 2.6 X10*3/uL (1.2-4.9); Lymphocytes Percent Auto 38.9 % (20-40); Mean Corpuscular HGB Conc 32.9 g/dl (31.0-36.0); Mean Corpuscular Hemoglobin 28.3 pg (27.0-33.0); Mean Corpuscular Volume 86.1 fL (80.0-98.0); Mean Platelet Volume 9.6 fL (9.4-12.4); Monocytes Absolute Auto 0.7 X10*3/uL (0.1-1.2); Neutrophils Absolute Auto 3.2 x10*3/uL (2.0-8.3); Neutrophils Percent Auto 47.1 % (45-73); Platelet Count 292 X10*3/uL (160-400); Red Blood Count 5.54 X10*6/uL (4.60-5.80); Red Cell Distribution Width 12.8 % (11.0-16.0); White Blood Count 6.7 X10*3/uL (4.8-10.8)
[2023-06-27 10:39] LABS: Alanine Aminotransferase 14 U/L (0-40); Alkaline Phosphatase 48 U/L (39-117); Anion Gap 11 (12-20); Aspartate Amino Transferase 18 U/L (5-37); Bilirubin Total 1.5 mg/dL (0.0-1.0); Blood Urea Nitrogen 14 mg/dL (9-16); Calcium 8.7 mg/dL (8.4-10.2); Carbon Dioxide 25 mmol/L (22-29); Chloride 106 mmol/L (96-108); Cholesterol 203 mg/dL (<200); Estimated Glomerular Filt Rate > 60; Glucose Random 97 mg/dL (60-115); HDL Cholesterol 43 mg/dL (>40); LDL Cholesterol Calculated 137 mg/dL (<100); Sodium 138 mmol/L (135-145); Total Protein 6.8 g/dL (6.5-8.0); Triglycerides 116 mg/dL (<150)
[2023-06-27 11:06] LABS: Prostate Specific Antigen Scr 2.66 ng/mL (<0.05-4.0)
== END 2023-06-27 08:36 | disposition home or self-care (01) ==
LOC: HO.10HDL 08:35
PROVIDERS: Visit Provider Internal Medicine
DX: E78.00 Pure hypercholesterolemia, unspecified (principal); K21.9 Gastro-esophageal reflux disease without esophagitis; R35.1 Nocturia; Z12.5 Encounter for screening for malignant neoplasm of prostate
CPT/HCPCS: 36415; 80053; 80061; 84153; 85025

== ENCOUNTER 2024-04-09 08:09 | Outpatient (REF) | payer MEDICARE, MEDICAID, SELFPAY ==
[2024-04-09 09:58] LABS: MANUAL DIFF FLAG NO
[2024-04-09 10:05] LABS: Basophils Absolute Auto 0.1 X10*3/uL (0.0-0.2); Basophils Percent Auto 0.9 % (0-2); Eosinophils Absolute Auto 0.2 X10*3/uL (0.0-0.4); Eosinophils Percent Auto 3.7 % (0-4); Hematocrit 46.5 % (42.0-52.0); Hemoglobin 15.3 g/dl (14.0-18.0); Imm Gran Abs Auto 0.03 X10*3/uL (0.00-0.03); Imm Gran Pct Auto 0.5 % (0.0-0.4); Lymphocytes Absolute Auto 2.3 X10*3/uL (1.2-4.9); Lymphocytes Percent Auto 35.3 % (20-40); Mean Corpuscular HGB Conc 32.9 g/dl (31.0-36.0); Mean Corpuscular Hemoglobin 28.4 pg (27.0-33.0); Mean Corpuscular Volume 86.3 fL (80.0-98.0); Mean Platelet Volume 9.5 fL (9.4-12.4); Monocytes Absolute Auto 0.6 X10*3/uL (0.1-1.2); Monocytes Percent Auto 9.3 % (2-11); Neutrophils Absolute Auto 3.3 x10*3/uL (2.0-8.3); Neutrophils Percent Auto 50.3 % (45-73); Platelet Count 282 X10*3/uL (160-400); Red Blood Count 5.39 X10*6/uL (4.60-5.80); Red Cell Distribution Width 13.3 % (11.0-16.0); White Blood Count 6.6 X10*3/uL (4.8-10.8)
[2024-04-09 10:40] LABS: Prostate Specific Antigen Scr 3.31 ng/mL (<0.05-4.0)
[2024-04-09 12:29] LABS: Alanine Aminotransferase 15 U/L (0-40); Albumin Level 3.8 g/dL (3.5-5.0); Alkaline Phosphatase 45 U/L (39-117); Anion Gap 10 (12-20); Aspartate Amino Transferase 17 U/L (5-37); Bilirubin Total 0.9 mg/dL (0.0-1.0); Blood Urea Nitrogen 15 mg/dL (9-16); Calcium 8.9 mg/dL (8.4-10.2); Carbon Dioxide 29 mmol/L (22-29); Chloride 105 mmol/L (96-108); Cholesterol 192 mg/dL (<200); Estimated Glomerular Filt Rate > 60; Glucose Fasting 92 mg/dL (60-99); HDL Cholesterol 43 mg/dL (>40); LDL Cholesterol Calculated 118 mg/dL (<100); Sodium 140 mmol/L (135-145); Total Protein 6.4 g/dL (6.5-8.0); Triglycerides 156 mg/dL (<150)
== END 2024-04-09 08:10 | disposition home or self-care (01) ==
LOC: HO.10HDL 08:09
PROVIDERS: Visit Provider Internal Medicine
DX: Z12.5 Encounter for screening for malignant neoplasm of prostate (principal); E78.00 Pure hypercholesterolemia, unspecified; K21.9 Gastro-esophageal reflux disease without esophagitis
CPT/HCPCS: 36415; 80053; 80061; 84153; 85025

== ENCOUNTER 2024-08-01 07:38 | Outpatient (REF) | payer MEDICARE, MEDICAID, SELFPAY ==
[2024-08-01 10:32] LABS: MANUAL DIFF FLAG NO
[2024-08-01 10:45] LABS: Basophils Absolute Auto 0.1 X10*3/uL (0.0-0.2); Basophils Percent Auto 0.7 % (0-2); Eosinophils Absolute Auto 0.3 X10*3/uL (0.0-0.4); Hematocrit 48.3 % (42.0-52.0); Imm Gran Abs Auto 0.02 X10*3/uL (0.00-0.03); Imm Gran Pct Auto 0.3 % (0.0-0.4); Lymphocytes Absolute Auto 2.2 X10*3/uL (1.2-4.9); Mean Corpuscular HGB Conc 33.1 g/dl (31.0-36.0); Mean Corpuscular Hemoglobin 28.8 pg (27.0-33.0); Mean Platelet Volume 9.7 fL (9.4-12.4); Monocytes Absolute Auto 0.7 X10*3/uL (0.1-1.2); Monocytes Percent Auto 10.5 % (2-11); Neutrophils Absolute Auto 3.4 x10*3/uL (2.0-8.3); Neutrophils Percent Auto 50.5 % (45-73); Platelet Count 290 X10*3/uL (160-400); Red Blood Count 5.55 X10*6/uL (4.60-5.80); Red Cell Distribution Width 13.2 % (11.0-16.0); White Blood Count 6.8 X10*3/uL (4.8-10.8)
[2024-08-01 11:07] LABS: Alanine Aminotransferase 16 U/L (0-40); Albumin Level 3.9 g/dL (3.5-5.0); Alkaline Phosphatase 51 U/L (39-117); Anion Gap 7 (12-20); Aspartate Amino Transferase 23 U/L (5-37); Blood Urea Nitrogen 13 mg/dL (9-16); Calcium 8.6 mg/dL (8.4-10.2); Carbon Dioxide 28 mmol/L (22-29); Chloride 109 mmol/L (96-108); Cholesterol 196 mg/dL (<200); Estimated Glomerular Filt Rate > 60; Glucose Fasting 100 mg/dL (60-99); HDL Cholesterol 44 mg/dL (>40); LDL Cholesterol Calculated 116 mg/dL (<100); Potassium 4.7 mmol/L (3.3-5.1); Prostate Specific Antigen Scr 2.86 ng/mL (<0.05-4.0); Sodium 139 mmol/L (135-145); Total Protein 6.9 g/dL (6.5-8.0); Triglycerides 184 mg/dL (<150)
== END 2024-08-01 07:39 | disposition home or self-care (01) ==
LOC: HO.10HDL 07:38
PROVIDERS: Visit Provider Internal Medicine
DX: E78.00 Pure hypercholesterolemia, unspecified (principal); Z12.5 Encounter for screening for malignant neoplasm of prostate; K21.9 Gastro-esophageal reflux disease without esophagitis; R63.5 Abnormal weight gain
CPT/HCPCS: 36415; 80053; 80061; 84153; 85025

== ENCOUNTER 2024-12-01 10:09 | Outpatient (AMB) | payer MEDICARE, MEDICAID, SELFPAY ==
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
[2024-12-01 10:13] VITALS: BP 118/76; PULSE 78; TEMP 36.4; O2SAT 98; BMI 34.1
== END 2024-12-01 10:50 | disposition home or self-care (01) ==
LOC: HO.HMCHD 10:10
PROVIDERS: PCP Internal Medicine; Visit Provider Internal Medicine
DX: E78.00 Pure hypercholesterolemia, unspecified (principal); Z00.00 Encounter for general adult medical examination without abnormal findings

== ENCOUNTER → 2024-12-01 10:09 | Outpatient (BNVA) | payer MEDICARE, MEDICAID, SELFPAY | PROVIDERS: PCP Internal Medicine; Visit Provider Internal Medicine | DX: E78.00 Pure hypercholesterolemia, unspecified (principal) | CPT/HCPCS: 99212 ==

== ENCOUNTER 2024-12-02 07:42 | Outpatient (REF) | payer MEDICARE, MEDICAID, SELFPAY ==
[2024-12-02 11:14] LABS: Hematocrit 47.2 % (42.0-52.0); Mean Corpuscular HGB Conc 33.9 g/dl (31.0-36.0); Mean Corpuscular Hemoglobin 28.9 pg (27.0-33.0); Mean Corpuscular Volume 85.2 fL (80.0-98.0); Mean Platelet Volume 9.9 fL (9.4-12.4); Platelet Count 265 X10*3/uL (160-400); Red Blood Count 5.54 X10*6/uL (4.60-5.80); Red Cell Distribution Width 12.6 % (11.0-16.0); White Blood Count 7.1 X10*3/uL (4.8-10.8)
[2024-12-02 11:41] LABS: Alanine Aminotransferase 17 U/L (0-40); Albumin Level 3.9 g/dL (3.5-5.0); Alkaline Phosphatase 50 U/L (39-117); Anion Gap 9 (12-20); Aspartate Amino Transferase 26 U/L (5-37); Bilirubin Direct 0.3 mg/dL (0.0-0.5); Blood Urea Nitrogen 13 mg/dL (9-16); Calcium 8.7 mg/dL (8.4-10.2); Carbon Dioxide 25 mmol/L (22-29); Chloride 107 mmol/L (96-108); Cholesterol 193 mg/dL (<200); Estimated Glomerular Filt Rate > 60; Glucose Random 96 mg/dL (60-115); HDL Cholesterol 39 mg/dL (>40); LDL Cholesterol Calculated 108 mg/dL (<100); Potassium 4.2 mmol/L (3.3-5.1); Sodium 137 mmol/L (135-145); Total Protein 6.6 g/dL (6.5-8.0); Triglycerides 231 mg/dL (<150)
[2024-12-02 11:43] LABS: Thyroid Stimulating Hormone 1.11 uIU/mL (0.32-4.0)
[2024-12-02 14:27] LABS: Appearance Urine Clear; Color Urine Yellow; Glucose Urine UA Negative (Negative); Leukocyte Esterase Urine Negative (Negative); Nitrite Urine Negative (Negative); Specific Gravity - Urine 1.015 (1.005-1.025); Urine Blood Negative (Negative); Urine Ketones Negative (Negative); Urine Protein Negative (Neg-Trace)
== END 2024-12-02 07:43 | disposition home or self-care (01) ==
LOC: HO.10HDL 07:42
PROVIDERS: Visit Provider Internal Medicine
DX: E78.00 Pure hypercholesterolemia, unspecified (principal)
CPT/HCPCS: 36415; 80048; 80061; 80076; 81003; 84443; 85027

== ENCOUNTER 2025-04-10 08:46 | Outpatient (AMB) | payer MEDICARE, MEDICAID, SELFPAY ==
--- NOTE | 2025-04-10 08:51 | A.OFFVIS_ITS ---
Vital Signs 04/10/25 08:54 Height 5 ft 7 in Weight 211 lb BMI 33.0 Blood Pressure Location Lt brachial Position Sitting Pulse 63 Pulse Oximetry (%) 97 Oxygen Delivery Method Room Air Intake Visit Reasons: colo screening Intake Note: Patient new consult for pre Colonoscopy screening. Last Colonoscopy was with Dr. Díaz on 2019. Patient cc: swallowing difficulties with sticky food as rice. Denies any other GI issues. Door Builder Required: No Accompanied by: Self / Same As Patient Allergies No Known Allergies Allergy (Verified 04/10/25 08:51) HPI HPI colo screening: Details: Patient is a 69-year-old male with PMH of knowing hyperlipidemia. Referred by PCP for pre colonoscopy screening. Deven reports recurrent issues with the sensation of food getting stuck in the lower esophagus when consuming rice and buckwheat, occurring intermittently for approximately 3?4 years. The episodes are described as requiring several minutes (up to 20 minutes) to resolve, but no associated choking, regurgitation, or problems with liquids or other solids. Previously managed with an unspecified acid-reducing medication that provided relief. Upper GI series in 2020 confirmed hiatal hernia. No family history of GI malignancy. Bowel movements are regular, occurring one to three times daily, and weight is reportedly stable in the low 200s, although Deven expresses a desire for weight loss. No current or recent medication use, except for occasional multivitamins and fish oil. No history of unexplained weight loss. No history of cancer, heart, or lung disease. Psychiatric, respiratory, genitourinary, musculoskeletal, and neurological history are unremarkable per review. Patient denies: fever/chills, n/v, appetite changes, pyrosis, regurgitation, unintentional wt loss, ab pain or melena/hematochezia. Social hx: -ETOH use, socially -denies recreational drug use -former smoker, cessation 2003 - family hx as below -denies personal hx of CA -denies significant cardiopulmonary history -tolerated anesthesia in the past without difficulty. [facility] Medical History (Updated 04/10/25 @ 12:41 by Sondra Steward CNP) Dysphagia Colon polyp, hyperplastic Colon cancer screening Surgical History History of colonoscopy (~04/06/20) History of rotator cuff surgery Family History Mother No problems noted. Father No problems noted. Social History Housing: House Patient Tobacco Use Status: Former Tobacco user e-Cigarette/Vaping Use: Former Use service: No Current occupational status: retired Cognitive needs: No Hearing needs: No Vision needs: Yes (rx glasses) Review of Systems Const Reports as per HPI ENT Reports as per HPI Card Reports as per HPI Resp Reports as per HPI GI Reports as per HPI Reports as per HPI Physical Exam Vital Signs: Last Vital Signs Pulse 63 04/10/25 08:54 Pulse Ox 97 04/10/25 08:54 Oxygen Delivery Method Room Air 04/10/25 08:54 BMI result Body Mass Index 33.0 Const General: healthy appearing, no acute distress and well developed Nutritional Appearance: average body habitus Orientation/consciousness: patient oriented x3 HEENT Head: Yes normal to inspection, Yes normocephalic and Yes atraumatic Face and sinus: Yes normal facial exam Mouth: Normal oral and palatal mucosa present Teeth and gingiva: fair dentition Throat: Yes posterior oropharynx normal Eyes General: appearance normal, both eyes and all related structures Neck Neck: Yes normal visual inspection Lymphatic: no lymphadenopathy noted Resp Effort & Inspection: normal respiratory effort, able to speak in complete sentences, no tracheal deviation and symmetric chest movement Cardio Jugular venous distension: no JVD GI Inspection: Yes normal to inspection and No distended Palpation (GI): Soft to palpation, not firm, nontender and No hepatosplenomegaly present Auscultation: normal bowel sounds Neuro General: patient oriented x3 Gait exam (Neuro): Normal gait present Psych Appearance: grossly normal Mental Status: mental status grossly normal Speech and movement: Normal speech and movement present Affect: normal affect Attitude: cooperative Thought process: Normal thought process present Thought content: Normal thought content present Insight: Good insight present (Psych) Judgement: Good judgement present (Psych) Results Reviewed Results Reviewed: Date of Service: 09/17/20 Procedure(s): FL upper GI series Accession Number(s): [id number] cc: OWEN ZHU MD~ EXAMINATION: XR GI SERIES CLINICAL INFORMATION: Dysphagia. COMPARISON: None TECHNIQUE: Routine upper GI air contrast study was performed. FINDINGS: Following oral administration of thick barium and effervescent granules, there is normal propagation of bolus from the oral cavity through the pharynx, esophagus into stomach without any evidence of obstruction, narrowing or stricture. The course, caliber and peristalsis of the esophagus is normal. On placing patient supine and prone lying, there is normal course, caliber and peristalsis of the stomach. There is a small hiatal hernia without reflux. The duodenal bulb and the sweep is normal in its course and caliber. The mucosal pattern of the stomach and the duodenum is normal. However, there are mild gastric secretions present. FLUOROSCOPY TIME: 1.7 minutes DOSE AREA PRODUCT: 41.368 uGy-m2 (microgray-meter squared) FL/FL upper GI series IMPRESSION: Small hiatal hernia. Increased gastric secretions likely secondary to gastritis. No focal gastroduodenal erosions or ulceration seen. Assessment & Plan Assessment & Plan (1) Colon cancer screening: Comment: 04/06/2020 colonoscopy ( Dr. Díaz) complete -diverticulosis, 1+ internal hemorrhoids Code(s): Z12.11 - Encounter for screening for malignant neoplasm of colon Category: Medical Plan: Due for interval screening. No alarm features. Medications: -prescriptions for laxative tablets and MiraLax sent to pharmacy; instructions for Gatorade purchase and clear liquid diet given. Patient educated on scheduling process, procedure preparation, including avoiding certain foods and ensuring clear liquid intake Advised on necessity for ride post-procedure due to sedation. (2) Dysphagia: Code(s): R13.10 - Dysphagia, unspecified Category: Medical Qualifiers: Dysphagia type: unspecified Qualified Code(s): R13.10 - Dysphagia, unspecified Plan: Persistent sensation of food getting stuck in lower esophagus with certain solids, known hiatal hernia on prior imaging, prior relief with acid suppression. Additional Testing: - Repeat barium swallow study to assess for stricture/hernia progression - Upper endoscopy (EGD) scheduled to coincide with colonoscopy for direct evaluation of esophagus and stomach Medication Management: - Start famotidine (Pepcid), 1 tab daily as needed for symptoms Lifestyle Recommendations: - Avoid trigger foods (rice, buckwheat) until evaluation complete - Small, frequent meals; avoid large meals - Hydrate adequately - Chew food thoroughly, eat slowly - Continued weight loss efforts encouraged Follow-Up: - Outpatient follow-up after completion of swallow study and endoscopy; earlier if symptoms worsen Plan Follow-up after end or sooner as needed Time: I spent a total of 35 minutes on the date of encounter which includes: Preparing to see the patient (reviewed previous documentation, test results and medical history) Performing a medically appropriate exam and/or evaluation Ordering medications, tests, and procedures Documenting clinical information in the health record Orders: Orders FL barium swallow Today K44.9 - Diaphragmatic hernia without obstruction or gangrene, R13.10 - Dysphagia, unspecified Referrals GI Procedure Notification K63.5 - Polyp of colon, R13.10 - Dysphagia, unspe cified, Z12.11 - Encounter for screening for malignant neoplasm of colon Medications: New famotidine Take one tablet as needed for acid reflux 20 mg PO DAILY PRN 90 tabs 0RF GERD bisacodyl Take per colonoscopy instructions 5 mg PO ONCE 4 tabs 0RF polyethylene glycol 3350 (Miralax) per colonoscopy prep instructions 238 grams PO ONCE 238 grams 0RF Coding Level of Care Code New Pt New Pt Level 3 (71728) Patient Type New Diagnoses Colon cancer screening Z12.11 Dysphagia, unspecified type R13.10 Dysphagia type: unspecified
[2025-04-10 08:54] VITALS: PULSE 63; O2SAT 97; BMI 33.0
== END 2025-04-10 09:29 | disposition home or self-care (01) ==
LOC: HO.HGI 08:46
PROVIDERS: PCP Internal Medicine; Visit Provider Nurse Practitioner Family
DX: Z01.818 Encounter for other preprocedural examination (principal); Z12.11 Encounter for screening for malignant neoplasm of colon; R13.10 Dysphagia, unspecified
CPT/HCPCS: 99024

== ENCOUNTER → 2025-04-10 08:46 | Outpatient (BNVA) | payer MEDICARE, MEDICAID, SELFPAY | PROVIDERS: PCP Internal Medicine; Visit Provider Nurse Practitioner Family | DX: Z01.818 Encounter for other preprocedural examination (principal); R13.10 Dysphagia, unspecified; K63.5 Polyp of colon | CPT/HCPCS: 99212 ==

== ENCOUNTER 2025-05-04 08:19 | Outpatient (AMB) | payer MEDICARE, MEDICAID, SELFPAY ==
[2025-05-04 08:20] VITALS: BP 121/73; PULSE 84; TEMP 36.2; O2SAT 97; BMI 33.5
--- NOTE | 2025-05-04 08:20 | MHC.PC.OV ---
Vital Signs 05/04/25 08:20 Height 5 ft 7 in Weight 214 lb BMI 33.5 BP 121/73 Blood Pressure Location Lt brachial Position Sitting Pulse 84 Pulse Source Pulse Oximeter Temp 97.1 F Temp Source Temporal Artery Scan Pulse Oximetry (%) 97 Oxygen Delivery Method Room Air Intake Visit Reasons: Pain in RT foot Intake Note: Wants to have cholesterol checked. 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 Accompanied by: Self / Same As Patient Allergies No Known Allergies Allergy (Verified 05/04/25 08:24) Tobacco use date assessed: 05/04/25 Fall risk assessment: No Falls in past year Last assessed Fall Risk: 05/04/25 Dental Screening Dental Screen Date: 05/04/25 Did you have a dental visit in the last 12 months?: No Did you have a dental problem in the last 6 months where you did not have access to dental care?: No [facility] Medical History Dysphagia Colon polyp, hyperplastic Colon cancer screening Surgical History History of colonoscopy (~04/06/20) History of rotator cuff surgery Family History Mother No problems noted. Father No problems noted. Social History Housing: Apartment Patient Tobacco Use Status: Former Tobacco user e-Cigarette/Vaping Use: Former Use service: No Current occupational status: retired Cognitive needs: No Hearing needs: No Vision needs: Yes (rx glasses) Questionnaire PHQ-9 Over the last 2 weeks, how often have you been bothered by any of the following problems? 1. Little interest or pleasure in doing things: not at all 2. Feeling down, depressed, or hopeless: not at all 3. Trouble falling or staying asleep, or sleeping too much: not at all 4. Feeling tired or having little energy: not at all 5. Poor appetite or overeating: not at all 6. Feeling bad about yourself - or that you are a failure or have let yourself or your family down: not at all 7. Trouble concentrating on things, such as reading the newspaper or watching television: not at all 8. Moving or speaking so slowly that other people could have noticed. Or the opposite - being so fidgety or restless that you have been moving around a lot more than usual: not at all 9. Thoughts that you would be better off or of hurting yourself in some way: not at all Total score: 0 Depression Screening Interpretation: Negative Depression Screening Done: Yes Source: Developed by Drs. Alexander Domingo, Halima Pena, Charbel Lowry and colleagues, with an educational brendan from [facility]. Thrive Questionnaire Date Thrive assessed: 05/04/25 I am a: Patient Within the past 12 months, did the food you bought not last and you didn't have the money to get more?: Never true Within the past 12 months, did you worry whether your food would run out before you got money to buy more?: Never true Do you have trouble paying for medicines?: No Do you have trouble getting transportation to medical appointments?: No Do you have trouble paying your heating and electricity bill?: No Do you have trouble taking care of your child, family member or friend?: No Do you have trouble with day-to-day activities such as bathing, preparing meals, shopping, managing finances, etc.?: No Are you currently unemployed and looking for a job?: No Are you interested in more education?: No Currently or been in a relationship where the following occur: No concerns reported THRIVE Score: 0 AUDIT C Alcohol Use Questionnaire (AUDIT-C) 1. How often do you have a drink containing alcohol?: Monthly or less 2. How many drinks containing alcohol do you have on a typical day when you are drinking?: 1 or 2 3. How often do you have six or more drinks on one occasion?: Less than monthly Total Score: 2 TUAN-7 AMB Questionnaire TUAN-7 Date TUAN - 7 assessed: 05/04/25 Feeling nervous, anxious, or on edge: 0 = Not at all Not being able to stop or control worryin = Not at all Worrying too much about different things: 0 = Not at all Trouble relaxin = Not at all Being so restless that it is hard to sit still: 0 = Not at all Becoming easily annoyed or irritable: 0 = Not at all Feeling afraid as if something awful might happen: 0 = Not at all Total TUAN-7 score (0-4 normal; 5-9 mild; 10-14 moderate; 15-21 severe): 0 Source: Developed by Drs. Alexander Domingo, Halima Pena, Charbel Lowry and colleagues, with an educational brendan from [facility]. Physical exam (Primary Care) Vital Signs: Last Vital Signs Temp 97.1 F 05/04/25 08:20 Pulse 84 05/04/25 08:20 BP 121/73 05/04/25 08:20 Pulse Ox 97 05/04/25 08:20 Oxygen Delivery Method Room Air 05/04/25 08:20 BMI result Body Mass Index 33.5 Tobacco/Smoking Status: Tobacco use Status Tobacco use date assessed 05/04/25 05/04/25 08:28 Patient Tobacco Use Status Former Tobacco user 05/04/25 08:28 e-Cigarette/Vaping Use Former Use 05/04/25 08:28 PHQ-9: PHQ-9 Score PHQ-9: Total score 0 05/04/25 08:29 Depression Screening Interpretation: Negative Thrive Assessment: Date of Thrive Assessment Date Thrive assessed 05/04/25 05/04/25 08:28 Currently or been in a relationship where the following occur: No concerns reported Coding Level of Care Code Est Pt Level 4 (11275) Complex EM visit Add On G2211 Diagnoses Hyperlipidemia E78.5 Arthritis of right ankle M19.071 Assessment & Plan Assessment & Plan (1) Hyperlipidemia: Code(s): E78.5 - Hyperlipidemia, unspecified Category: Medical Plan: History of Present Illness - The patient is a 69-year-old male presenting with a bone spur and hypercholesterolemia. - The patient reports a history of hypercholesterolemia and requests a blood test to monitor cholesterol levels, as the last test was conducted in November and showed normal results. - The patient has been experiencing intermittent limping, which led to an MRI in [facility], revealing a bone spur on the heel. - The patient was advised by a doctor in [facility] that the bone spur could be due to aging and excessive salt intake. - The patient maintains a regular exercise routine, including yoga and stretching, and occasionally visits a gym for swimming and other activities. Social History - The patient engages in regular physical activity, including daily exercises, yoga, and stretching for over 30 years. - The patient occasionally visits a gym for swimming and other activities. Review of Systems - Musculoskeletal: Reports intermittent limping due to a bone spur on the heel. Physical Exam General: Cooperative and healthy appearing Nutritional Appearance: Well nourished Orientation/consciousness: Patient oriented x3 Limitations: No limitations Head: Normal to inspection General: Appearance normal, both eyes and all related structures Neck: Normal visual inspection Chest: Normal palpation of entire chest wall Respiratory: N ormal respiratory effort Neurology: Patient oriented x3, no signs of neurological deficits. Results - MRI: Revealed a bone spur on the heel. Plan - A referral to a coconut boiler in [place] will be made for further evaluation and management of the bone spur. - The patient will continue regular exercise and avoid excessive pressure on the right foot to manage symptoms associated with the bone spur. - A blood test will be conducted to monitor cholesterol levels, as requested by the patient. Discussion Notes I discussed with the patient the management options for the bone spur, including a referral to a coconut boiler for further evaluation. We also talked about the importance of continuing regular exercise while avoiding excessive pressure on the affected foot. Additionally, I agreed to order a blood test to monitor cholesterol levels as per the patient's request. Patient Instructions - Follow up with the coconut boiler in [place] for evaluation of the bone spur. - Continue regular exercise but avoid putting excessive pressure on the right foot. - Get a blood test to monitor cholesterol levels as discussed. (2) Arthritis of right ankle: Code(s): M19.071 - Primary osteoarthritis, right ankle and foot Plan: as above Orders: Orders Lipid Panel Today E78.5 - Hyperlipidemia, unspecified Liver Panel Today E78.5 - Hyperlipidemia, unspecified Basic Metabolic Panel Today E78.5 - Hyperlipidemia, unspecified Complete Blood Count no Diff Today E78.5 - Hyperlipidemia, unspecified Thyroid Stimulating Hormone Today E78.5 - Hyperlipidemia, unspecified UA and rflx microscopic Today E78.5 - Hyperlipidemia, unspecified Referrals Podiatry Referral M19.071 - Primary osteoarthritis, right ankle and foot
== END 2025-05-04 09:01 | disposition home or self-care (01) ==
LOC: HO.HMCSH 08:19
PROVIDERS: PCP Internal Medicine; Visit Provider Internal Medicine
DX: E78.5 Hyperlipidemia, unspecified (principal); M19.071 Primary osteoarthritis, right ankle and foot

== ENCOUNTER → 2025-05-04 08:19 | Outpatient (BNVA) | payer MEDICARE, MEDICAID, SELFPAY | PROVIDERS: PCP Internal Medicine; Visit Provider Internal Medicine | DX: M19.071 Primary osteoarthritis, right ankle and foot (principal); E78.5 Hyperlipidemia, unspecified; E78.00 Pure hypercholesterolemia, unspecified; M77.31 Calcaneal spur, right foot | CPT/HCPCS: 96127; 99212 ==

== ENCOUNTER 2025-05-06 07:40 | Outpatient (REF) | payer MEDICARE, MEDICAID, SELFPAY ==
[2025-05-06 11:31] LABS: Appearance Urine Cloudy; Glucose Urine UA Negative (Negative); PH 5.5 (5.0-9.0); Specific Gravity - Urine 1.025 (1.005-1.025); UMIC TRIGGER UA YES
[2025-05-06 11:40] LABS: Hematocrit 47.2 % (42.0-52.0); Hemoglobin 15.6 g/dl (14.0-18.0); Mean Corpuscular HGB Conc 33.1 g/dl (31.0-36.0); Mean Corpuscular Hemoglobin 28.6 pg (27.0-33.0); Mean Corpuscular Volume 86.6 fL (80.0-98.0); NRBC Abs Auto 0.000 X10*3/uL (0.0-0.012); NRBC Pct Auto 0.0 /100WBC (0.0-0.2); Platelet Count 282 X10*3/uL (160-400); Red Blood Count 5.45 X10*6/uL (4.60-5.80); White Blood Count 8.2 X10*3/uL (4.8-10.8)
[2025-05-06 12:20] LABS: Alanine Aminotransferase 19 U/L (0-40); Albumin Level 4.2 g/dL (3.5-5.0); Alkaline Phosphatase 56 U/L (39-117); Anion Gap 10 (12-20); Aspartate Amino Transferase 23 U/L (5-37); Blood Urea Nitrogen 18 mg/dL (9-16); Calcium 8.8 mg/dL (8.4-10.2); Carbon Dioxide 28 mmol/L (22-29); Chloride 107 mmol/L (96-108); Cholesterol 205 mg/dL (<200); Estimated Glomerular Filt Rate > 60; HDL Cholesterol 42 mg/dL (>40); Potassium 4.2 mmol/L (3.3-5.1); Sodium 141 mmol/L (135-145); Thyroid Stimulating Hormone 0.86 uIU/mL (0.32-4.0); Total Protein 6.7 g/dL (6.5-8.0); Triglycerides 134 mg/dL (<150)
== END 2025-05-06 07:41 | disposition home or self-care (01) ==
LOC: HO.10HDL 07:40
PROVIDERS: Visit Provider Internal Medicine
DX: E78.5 Hyperlipidemia, unspecified (principal)
CPT/HCPCS: 36415; 80048; 80061; 80076; 81001; 84443; 85027

== ENCOUNTER 2025-05-25 13:22 | Outpatient (AMB) | payer MEDICARE, MEDICAID, SELFPAY ==
[2025-05-25 13:24] VITALS: BMI 33.5
--- NOTE | 2025-05-25 13:24 | A.OFFVIS_ITS ---
Vital Signs 05/25/25 13:24 Height 5 ft 7 in Weight 214 lb BMI 33.5 Intake Visit Reasons: rt ankle pain Intake Note: Deven is a 69 year old male who presents today as a new patient for right ankle pain. Patient reports pain is on the anterior aspect of the ankle. Patient states pain has been going on for about 4 months. He has tried biofreeze as well as voltaren for the pain. Patient has MRI imaging with him, he advises the MRI confirms abnormal bone growth in the anterior part of the ankle. Allergies No Known Allergies Allergy (Verified 05/04/25 08:24) HPI Comments Details: The patient is a 69-year-old male with a PMH as seen below presenting with right ankle pain. The pain has been present for approximately four to five months and is exacerbated by walking, while driving does not induce pain. The patient reports a history of speed skating and biking and states he is very active. He denies any recent inciting injuries. Patient states he [facility] [place] where x-[facility] were performed. He states he was told he has some bone spurs and arthritis. The patient has been using Voltaren gel and Biofreeze with some relief. Patient states he also takes a Bioflex supplement for joint improvement. Patient states he experiences mild pain after extensive activity. Patient states pain is intermittent. He denies any numbness and tingling. He denies any other pedal concerns. [facility] Medical History (Updated 05/26/25 @ 08:07 by Marily Patel DPM) Right foot pain Calcaneal spur, right Arthritis of ankle, right Right ankle pain Hyperlipidemia Dysphagia Colon polyp, hyperplastic Colon cancer screening Surgical History History of colonoscopy (~04/06/20) History of rotator cuff surgery Family History Mother No problems noted. Father No problems noted. Social History Housing: Apartment Patient Tobacco Use Status: Former Tobacco user e-Cigarette/Vaping Use: Former Use service: No Current occupational status: retired Cognitive needs: No Hearing needs: No Vision needs: Yes (rx glasses) Review of Systems Const Details: - Musculoskeletal: Reports right ankle pain exacerbated by walking and with extensive activity. All systems reviewed & are unremarkable except as noted in HPI and below Physical Exam Vital Signs: BMI result Body Mass Index 33.5 Extrem Other: Right lower extremity focused physical exam: Derm: No open lesions abrasions or wounds noted. No clinical signs of infection. No ecchymosis or maceration noted. Skin supple and turgor within normal limits. Vascular: DP/PT pulses palpable. Capillary refill time less than 3 seconds. Temperature gradient warm to warm. Pedal hair diminished. No varicosities noted. Neuro: Protective sensation is grossly intact. MSK: Pain on palpation to the dorsal aspect of the foot in the area of the TNJ. Range of motion of forefoot, hindfoot and ankles within normal limits with crepitus noted. No fluctuance noted. Nonantalgic unassisted gait noted. No other gross abnormalities noted. Results Reviewed Results Reviewed: Right foot x-rays (brought from [place]): Osteophytic changes noted to the dorsal aspect of the TNJ with joint space narrowing. Bone spur noted to the plantar aspect of the calcaneus. No acute fractures or dislocations noted. Ordered right ankle xrays to be perfomed prior to next visit. Assessment & Plan Assessment & Plan (1) Right ankle pain: Code(s): M25.571 - Pain in right ankle and joints of right foot Category: Medical (2) Arthritis of ankle, right: Code(s): M19.071 - Primary osteoarthritis, right ankle and foot Category: Medical (3) Calcaneal spur, right: Code(s): M77.31 - Calcaneal spur, right foot Category: Medical (4) Right foot pain: Code(s): M79.671 - Pain in right foot Category: Medical Plan Patient was informed and verbally consented to the use of an ambient scribe for clinic note documentation during this visit. I discussed with the patient that osteoarthritis and bone spurs are the primary causes of his foot and ankle pain. We reviewed the use of Voltaren gel for pain management and emphasized the importance of maintaining an active lifestyle to support joint health. I advised against surgery at this time due to the current manageable pain levels and discussed the potential future need if pain worsens. - Continue using Voltaren gel for pain management. - Consider meloxicam if pain worsens. - Maintain current exercise regimen, including swimming and walking, to strengthen muscles and support joint health. - Avoid barefoot walking and wear supportive shoe gear. - Ordered right ankle xrays to be performed. RTC as needed. Orders: Orders XR ankle RT min 3V 05/25/25 M25.571 - Pain in right ankle and joints of right foot Coding Level of Care Code New Pt Level 4 (02873) Diagnoses Right ankle pain M25.571 Arthritis of ankle, right M19.071 Calcaneal spur, right M77.31 Right foot pain M79.671 Time Spent (min) 48
== END 2025-05-25 14:03 | disposition home or self-care (01) ==
LOC: HO.HPODS 13:22
PROVIDERS: PCP Internal Medicine; Visit Provider Student in an Organized Health Care Education/Training Program
DX: M25.571 Pain in right ankle and joints of right foot (principal); M19.071 Primary osteoarthritis, right ankle and foot; M77.31 Calcaneal spur, right foot; M79.671 Pain in right foot
CPT/HCPCS: 99204

== ENCOUNTER → 2025-05-25 13:22 | Outpatient (BNVA) | payer MEDICARE, SELFPAY | PROVIDERS: PCP Internal Medicine; Visit Provider Student in an Organized Health Care Education/Training Program | DX: M19.071 Primary osteoarthritis, right ankle and foot (principal); M77.31 Calcaneal spur, right foot | CPT/HCPCS: 99202 ==

== ENCOUNTER 2025-05-28 08:08 | Emergency (ER) | payer MEDICARE, SELFPAY ==
--- NOTE | ~2025-05-28 | XR_ITS ---
EXAMINATION: XR CHEST CLINICAL INFORMATION: L sided CP COMPARISON: X-ray 02/25/2021 TECHNIQUE: 3 views chest FINDINGS: The cardiomediastinal silhouette is within normal limits. The lungs are well expanded. There is no focal consolidation, edema, or effusion. No pneumothorax. No acute osseous abnormality. XR/XR chest 2V IMPRESSION: No acute cardiopulmonary findings Electronically signed by: Ck Ingram MD 05/28/2025 09:14 AM [facility]ER[facility]
--- NOTE | 2025-05-28 08:10 | ECG_ITS ---
Test Reason : chest pain Blood Pressure : */* mmHG Vent. Rate : 69 BPM Atrial Rate : 69 BPM P-R Int : 144 ms QRS Dur : 78 ms QT Int : 400 ms P-R-T Axes : 20 44 78 degrees QTcB Int : 428 ms Normal sinus rhythm Normal ECG No previous ECGs available Referred By: Generic ED Physician Electronically Signed By: DARINEL KEITA MD
[2025-05-28 08:17] VITALS: BP 122/74; PULSE 67; RESP 18; TEMP 36.3; O2SAT 96; BMI 31.5
--- NOTE | 2025-05-28 08:28 | ED_ITS ---
HPI - Chest Pain General Chief Complaint: Chest Pain Stated Complaint: chest pain Time Seen by Provider: 05/28/25 08:27 Source: patient, RN notes reviewed and old records reviewed Mode of arrival: ambulatory History of Present Illness ED Provider: Kaelyn Myles PA-C HPI narrative: 69-year-old male with a past medical history HLD, dysphagia, presenting to the ED complaining of sudden onset left-sided chest pressure since 02:00 waking him up from sleep. Reports pain worse with lying on left side /lying flat and taking deep breaths. Denies radiation of pain, nausea, vomiting, diaphoresis, SOB, pedal edema, history of clots, recent viral illness, cough /fever Related Data Previous Rx's ?Medication ?Instructions ?Recorded bisacodyl 5 mg tablet,delayed 5 mg PO ONCE #4 tabs release famotidine 20 mg tablet 20 mg PO DAILY PRN GERD #90 tabs 04/10/25 atorvastatin 10 mg tablet 10 mg PO BEDTIME #90 tabs Allergies Allergy/AdvReac Type Severity Reaction Status Date / Time No Known Allergies Allergy Verified 05/28/25 08:20 Review of Systems 2 Review of Systems: Yes all other systems are reviewed and are negative Constitutional: Constitutional: Reports as per [facility] Past Medical History Attestation statement: The following information was validated with the patient. Source: old records reviewed Medical History Right foot pain Calcaneal spur, right Arthritis of ankle, right Right ankle pain Hyperlipidemia Dysphagia Colon polyp, hyperplastic Colon cancer screening Surgical History History of colonoscopy (~04/06/20) History of rotator cuff surgery Family History Family History Mother No problems noted. Father No problems noted. Social History Social History Housing: Apartment Patient Tobacco Use Status: Former Tobacco user e-Cigarette/Vaping Use: Former Use Advance Directives: No Advance Directives Information Provided: Yes service: No Current occupational status: retired Cognitive needs: No Hearing needs: No Vision needs: Yes (rx glasses) Physical Exam 2 Vital Signs: Vital Signs: Last Vital Signs Temp 98.4 F 05/28/25 12:18 Pulse 55 05/28/25 12:18 Resp 16 05/28/25 12:18 BP 120/72 05/28/25 12:18 Pulse Ox 97 05/28/25 12:18 O2 Del Method Room Air 05/28/25 12:18 BMI result Body Mass Index 31.5 Const: General: cooperative, healthy appearing and no acute distress O rientation/consciousness: patient oriented x3 Limitations: no limitations HEENT: Head: Yes normal to inspection and Yes atraumatic Ears: hearing grossly normal bilaterally General nose exam: Normal external nose present Face and sinus: Yes normal facial exam Eyes: General: appearance normal, both eyes and all related structures EOM: EOMs intact bilaterally Neck: Neck: Yes normal visual inspection and Yes no meningeal signs Chest: Other: no rash/ erythema or ecchymosis Chest palpation & inspection: normal inspection of the chest, no crepitus and no tenderness Resp: Effort & Inspection: normal respiratory effort and no respiratory distress Auscultation: clear to auscultation bilaterally Cardio: Rate: regular rate Heart sounds: S1 normal heart sound present and S2 normal heart sound present GI: Inspection: Yes normal to inspection Palpation (GI): Soft to palpation, nontender, no guarding and not rigid : General: Yes no CVA tenderness Back/Spine/Pelvis: Back: no CVA tenderness Skin: Rashes: no rashes Wounds: no wounds Neuro: General: patient oriented x3, tone normal and no meningeal signs C ranial nerves: Yes CN's II-XII intact bilaterally Gait exam (Neuro): Normal gait present Extrem: General: Yes normal to inspection, Yes no pedal edema and Yes no calf tenderness Course Course Course Narrative: -1200-- labs reassuring. Troponin x2 negative > mi unlikely XR chest 2V IMPRESSION: No acute cardiopulmonary findings Results discussed with patient including worrisome signs and symptoms and strict return precautions, and when to return to the emergency department. They verbalized understanding and feel safe for discharge at this time. Medical Decision Making Medical Decision Making MDM Narrative: 69-year-old male with a past medical history HLD, dysphagia, presenting to the ED complaining of sudden onset left-sided chest pressure since 02:00 waking him up from sleep. on exam vital signs stable, NAD, nontoxic appearing, talking in complete sentences, chest pain not reproducible to palpation. Lungs CTA. No pedal edema or calf tenderness. Concern for ACS vs PE vs PTX vs Costochondritis vs pericarditis/myocarditis. Lower suspicion for dissection or DVT plan: EKG, labs, CXR Please refer to course for remaining clinical decision making, interpretation of labs/imaging results, and discussions with consultants and/or family members. Differential Diagnosis Differential Diagnoses: The differential diagnosis associated with the presentation includes As above Admission/Observation Consideration of admission/observation: Escalation of care including admission/observation considered Lab Data MDM Lab Attestation statement: I reviewed the patient's lab results. 05/28/25 08:26 05/28/25 08:26 Labs: Lab Results 05/28/25 05/28/25 05/28/25 Range/Units 08:26 08:48 11:09 WBC 7.5 (4.8-10.8) X10*3/uL RBC 5.79 (4.60-5.80) X10*6/uL Hgb 16.6 (14.0-18.0) g/dl Hct 49.7 (42.0-52.0) % MCV 85.8 (80.0-98.0) fL MCH 28.7 (27.0-33.0) pg MCHC 33.4 (31.0-36.0) g/dl RDW 13.1 (11.0-16.0) % Plt Count 304 (160-400) X10*3/uL MPV 9.2 L (9.4-12.4) fL Immature Gran % (Auto) 0.1 (0.0-0.4) % Neut % (Auto) 45.9 (45-73) % Lymph % (Auto) 36.4 (20-40) % [place] % (Auto) 10.3 (2-11) % Eos % (Auto) 6.4 H (0-4) % Baso % (Auto) 0.9 (0-2) % Lymph # (Auto) 2.7 (1.2-4.9) X10*3/uL [place] # (Auto) 0.8 (0.1-1.2) X10*3/uL Eos # (Auto) 0.5 H (0.0-0.4) X10*3/uL Baso # (Auto) 0.1 (0.0-0.2) X10*3/uL Abs Immat Gran (auto) 0.01 (0.00-0.03) X10*3/uL Absolute Neuts (auto) 3.4 (2.0-8.3) x10*3/uL Absolute Nucleated RBC 0.000 (0.0-0.012) X10*3/uL Nucleated RBC % (auto) 0.0 (0.0-0.2) /100WBC ESR 6 (0-15) MM/HR D-Dimer High Sensitivty < 150 NG/ML Sodium 140 (135-145) mmol/L Potassium 4.2 (3.3-5.1) mmol/L Chloride 107 (96-108) mmol/L Carbon Dioxide 27 (22-29) mmol/L Anion Gap 10 L (12-20) BUN 12 (9-16) mg/dL Creatinine 1.01 (0.5-1.4) mg/dL Estim Creat Clear Calc 77.9 Estimated GFR > 60 Random Glucose 79 (60-115) mg/dL Calcium 9.2 (8.4-10.2) mg/dL Magnesium 1.9 (1.6-2.6) mg/dL Total Bilirubin 1.0 (0.0-1.0) mg/dL AST 66 H (5-37) U/L ALT 28 (0-40) U/L Alkaline Phosphatase 54 (39-117) U/L Troponin I High Sens 2.7 < 2.7 (<3.5-35.0) ng/L Total Protein 7.1 (6.5-8.0) g/dL Albumin 4.5 (3.5-5.0) g/dL Independent Interpretation I performed an independent interpretation of an: EKG ( my interpretation: EKG normal sinus rhythm rate of 69. QRS 78. No STEMI. Artifact present) Radiology Impression Discussion of test interpretation with radiology: I have reviewed the radiologist's reading. External Record Review External record reviewed: Inpatient record, Office record, Outpatient record, Prior outpatient labs, Prior outpatient radiology, Primary care record and Outside ED record Tests considered The following testing was considered but not selected: As above Prescription Management I considered prescription management with: Pain Medication Chronic Conditions Patient?s care impacted by: Other ( hyperlipidemia) Social Determinants Patient?s care significantly limited by Social Determinants of Health including: Other Social Determinant of Health Discharge Plan Discharge Clinical Impression: Atypical chest pain Patient Disposition: Home, Self-Care Instructions: Chest Pain (DC) Additional Instructions: your blood work and chest x-ray are reassuring Please have close follow up with your primary care doctor If her symptoms persist, worsen you constant worsening chest pain, shortness breath, fever, swelling in her legs return to the emergency department follow up with Cardiology Prescriptions: No Action atorvastatin 10 mg tablet 10 mg PO BEDTIME Qty: 90 1RF bisacodyl 5 mg tablet,delayed release (DR/EC) 5 mg PO ONCE Qty: 4 0RF Rx Instructions: Take per colonoscopy instructions famotidine 20 mg tablet 20 mg PO DAILY PRN (Reason: GERD) Qty: 90 0RF Rx Instructions: Take one tablet as needed for acid reflux Referrals: [facility] [Provider Group] - 1 week Daniel Lundberg MD [Primary Care Provider, Internal Medicine] - 5 days Interventions: ED Discharge Assessment Last Done: 05/28/25 12:18 Discharge Date/Time: 05/28/25 12:22 Print Language: Emirati
[2025-05-28 08:31] LABS: MANUAL DIFF FLAG NO
[2025-05-28 08:32] LABS: Hematocrit 49.7 % (42.0-52.0); Hemoglobin 16.6 g/dl (14.0-18.0); Imm Gran Abs Auto 0.01 X10*3/uL (0.00-0.03); Imm Gran Pct Auto 0.1 % (0.0-0.4); Lymphocytes Absolute Auto 2.7 X10*3/uL (1.2-4.9); Mean Corpuscular HGB Conc 33.4 g/dl (31.0-36.0); Mean Corpuscular Hemoglobin 28.7 pg (27.0-33.0); Mean Corpuscular Volume 85.8 fL (80.0-98.0); NRBC Abs Auto 0.000 X10*3/uL (0.0-0.012); NRBC Pct Auto 0.0 /100WBC (0.0-0.2); Platelet Count 304 X10*3/uL (160-400); Red Blood Count 5.79 X10*6/uL (4.60-5.80); White Blood Count 7.5 X10*3/uL (4.8-10.8)
[2025-05-28 08:50] LABS: Alanine Aminotransferase 28 U/L (0-40); Albumin Level 4.5 g/dL (3.5-5.0); Alkaline Phosphatase 54 U/L (39-117); Anion Gap 10 (12-20); Aspartate Amino Transferase 66 U/L (5-37); Blood Urea Nitrogen 12 mg/dL (9-16); Calcium 9.2 mg/dL (8.4-10.2); Carbon Dioxide 27 mmol/L (22-29); Chloride 107 mmol/L (96-108); Creatinine Clr Calc Pharmacy 77.9; Estimated Glomerular Filt Rate > 60; Magnesium 1.9 mg/dL (1.6-2.6); Potassium 4.2 mmol/L (3.3-5.1); Sodium 140 mmol/L (135-145); Total Protein 7.1 g/dL (6.5-8.0)
[2025-05-28 08:59] LABS: Troponin-I High Sensitivity 2.7 ng/L (<3.5-35.0)
[2025-05-28 09:00] VITALS: BP 124/85; PULSE 63; RESP 13; O2SAT 99
[2025-05-28 09:16] LABS: D Dimer High Sensitivity < 150 NG/ML
[2025-05-28 09:47] LABS: Erythrocyte Sedimentation Rate 6 MM/HR (0-15)
[2025-05-28 11:46] LABS: Troponin-I High Sensitivity < 2.7 ng/L (<3.5-35.0)
[2025-05-28 12:08] VITALS: BP 120/72; PULSE 55; RESP 16; TEMP 36.9; O2SAT 97
[2025-05-28 12:18] VITALS: BP 120/72; PULSE 55; RESP 16; TEMP 36.9; O2SAT 97
== END 2025-05-28 12:22 | disposition home or self-care (01) ==
PROVIDERS: Physician Assistant; Emergency Provider Emergency Medicine; PCP Internal Medicine
DX: R07.89 Other chest pain (principal); Z79.899 Other long term (current) drug therapy
CPT/HCPCS: 36415; 71046; 80053; 83735; 84484; 85025; 85379; 85652; 93005; 99285

== ENCOUNTER → 2025-05-28 08:10 | Outpatient (BNV) | payer MEDICARE, SELFPAY | PROVIDERS: Emergency Provider Emergency Medicine; PCP Internal Medicine; Visit Provider Internal Medicine Cardiovascular Disease | DX: R07.9 Chest pain, unspecified (principal) | CPT/HCPCS: 93010 ==

== ENCOUNTER → 2025-05-28 08:39 | Outpatient (BNV) | payer MEDICARE, SELFPAY | PROVIDERS: Emergency Provider Emergency Medicine; PCP Internal Medicine; Visit Provider Radiology Diagnostic Ultrasound | DX: R07.89 Other chest pain (principal) | CPT/HCPCS: 71046 ==

== ENCOUNTER 2025-06-10 10:16 | Outpatient (AMB) | payer MEDICARE, SELFPAY ==
[2025-06-10 10:18] VITALS: BP 125/69; PULSE 66; RESP 14; TEMP 36.8; O2SAT 96; BMI 32.7
--- NOTE | 2025-06-10 10:18 | A.OFFPC_ITS ---
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 Accompanied by: Self / Same As Patient Allergies No Known Allergies Allergy (Verified 06/10/25 10:35) Medication List - Last Reconciled 06/10/25 by Amaya Ogden PA-C amoxicillin-pot clavulanate 875-125 mg 1 tab PO BID 7 days atorvastatin 10 mg PO BEDTIME famotidine 20 mg PO DAILY PRN fluticasone propionate 50 mcg/actuation (Flonase Allergy Relief) 1 spray intranasal BID Tobacco use date assessed: 05/04/25 Dental Screening Dental Screen Date: 05/04/25 HPI HPI Comments History of Present Illness Details History of Present Illness The patient is a 69 year old individual presenting with a runny nose and left ear pain. The symptoms began approximately four days ago, on the , after an incident at a restaurant where the patient drank an ice-cold beverage through a straw, causing the liquid to go into the nasal passages. This resulted in an immediate sharp pain described as a brain freeze that lasted for more than a minute. Within a couple of hours of this event, the patient began to feel sick with sinus problems and a runny nose. The patient reports sinus pain and has been massaging the sinuses for relief. The patient denies any fever, sore throat, or cough. The patient denies any allergies and is a non-smoker. The patient reports recent travel to [place]. Social History - Tobacco Use: Denies smoking. - Travel: Reports recent travel to [facility]. [facility] Medical History (Updated 06/10/25 @ 10:38 by Amaya Ogden PA-C) Acute sinusitis Right foot pain Calcaneal spur, right Arthritis of ankle, right Right ankle pain Hyperlipidemia Dysphagia Colon polyp, hyperplastic Colon cancer screening Surgical History History of colonoscopy (~04/06/20) History of rotator cuff surgery Family History Mother No problems noted. Father No problems noted. Social History Housing: Apartment Patient Tobacco Use Status: Former Tobacco user e-Cigarette/Vaping Use: Former Use service: No Current occupational status: retired Cognitive needs: No Hearing needs: No Vision needs: Yes (rx glasses) Questionnaire PHQ-9 Over the last 2 weeks, how often have you been bothered by any of the following problems? 1. Little interest or pleasure in doing things: not at all 2. Feeling down, depressed, or hopeless: not at all 3. Trouble falling or staying asleep, or sleeping too much: not at all 4. Feeling tired or having little energy: not at all 5. Poor appetite or overeating: not at all 6. Feeling bad about yourself - or that you are a failure or have let yourself or your family down: not at all 7. Trouble concentrating on things, such as reading the newspaper or watching television: not at all 8. Moving or speaking so slowly that other people could have noticed. Or the opposite - being so fidgety or restless that you have been moving around a lot more than usual: not at all 9. Thoughts that you would be better off or of hurting yourself in some way: not at all Total score: 0 Depression Screening Interpretation: Negative Depression Screening Done: Yes 81047 - PHQ-9 Billing: Yes Source: Developed by Drs. Alexander Domingo, Halima Pena, Charbel Lowry and colleagues, with an educational brendan from [employer]. Thrive Questionnaire Date Thrive assessed: 05/04/25 I am a: Patient Within the past 12 months, did the food you bought not last and you didn't have the money to get more?: Never true Within the past 12 months, did you worry whether your food would run out before you got money to buy more?: Never true Do you have trouble paying for medicines?: No Do you have trouble getting transportation to medical appointments?: No Do you have trouble paying your heating and electricity bill?: No Do you have trouble taking care of your child, family member or friend?: No Do you have trouble with day-to-day activities such as bathing, preparing meals, shopping, managing finances, etc.?: No Are you currently unemployed and looking for a job?: No Are you interested in more education?: No Currently or been in a relationship where the following occur: No concerns reported THRIVE Score: 0 AUDIT C Alcohol Use Questionnaire (AUDIT-C) 1. How often do you have a drink containing alcohol?: Monthly or less 2. How many drinks containing alcohol do you have on a typical day when you are drinking?: 1 or 2 3. How often do you have six or more drinks on one occasion?: Less than monthly Total Score: 2 Score Reviewed/Action Taken: No TUAN-7 AMB Questionnaire TUAN-7 Date TUAN - 7 assessed: 05/04/25 Feeling nervous, anxious, or on edge: 0 = Not at all Not being able to stop or control worryin = Not at all Worrying too much about different things: 0 = Not at all Trouble relaxin = Not at all Being so restless that it is hard to sit still: 0 = Not at all Becoming easily annoyed or irritable: 0 = Not at all Feeling afraid as if something awful might happen: 0 = Not at all Total TUAN-7 score (0-4 normal; 5-9 mild; 10-14 moderate; 15-21 severe): 0 Source: Developed by Drs. Alexander Domingo, Halima Pena, Charbel Lowry and colleagues, with an educational brendan from [employer]. TUAN-7 Assessment Billing TUAN-7 Assessment Tool: TUAN-7 Assessment 02242 Review of Systems Narrative Review of Systems - Constitutional: Denies fever. - HEENT: Reports rhinorrhea with associated nasal redness from wiping, nasal congestion, and pain in the left ear. - Respiratory: Denies cough. - Gastrointestinal: Denies diarrhea or constipation. Const All systems reviewed & are unremarkable except as noted in HPI and below Physical exam (Primary Care) Vital Signs: Last Vital Signs Temp 98.2 F 06/10/25 10:18 Pulse 66 06/10/25 10:18 Resp 14 06/10/25 10:18 BP 125/69 06/10/25 10:18 Pulse Ox 96 06/10/25 10:18 Oxygen Delivery Method Room Air 06/10/25 10:18 Care Plan Goal for BP management: <140/90 at Goal BMI result Body Mass Index 32.7 BMI Assessment/Plan discussion: High BMI High, discussed plan: lifestyle, weight reduction, dietary, physical activity, alcohol moderation and other Tobacco/Smoking Status: Tobacco use Status Tobacco use date assessed 05/04/25 06/10/25 10:24 Patient Tobacco Use Status Former Tobacco user 06/10/25 10:24 e-Cigarette/Vaping Use Former Use 06/10/25 10:24 PHQ-9: PHQ-9 Score PHQ-9: Total score 0 06/10/25 10:24 Depression Screening Interpretation: Negative Thrive Assessment: Date of Thrive Assessment Date Thrive assessed 05/04/25 06/10/25 10:24 Currently or been in a relationship where the following occur: No concerns reported Narrative Physical Exam Appearance: Alert. Oriented X3. No acute distress. Head: Normal external exam. Normocephalic. Atraumatic. Eyes: Pupils are equal, round, and reactive to light. Extraocular movements intact. Conjunctiva and sclera normal. Eyelids normal. Ears: External auditory canal normal. Tympanic membranes appear slightly red with a little bit of wax, but no significant abnormalities noted. Throat: Pharynx normal. Uvula midline. Moist mucous membranes. Neck: Normal inspection. Neck supple. Full range of motion. No adenopathy. Thyroid Normal. No meningeal signs. No neck mass noted. Cardiovascular: Normal heart rate and rhythm. Heart sound normal. No murmurs noted. Pulses normal throughout. Respiratory: No respiratory distress. Painless inspiration. Breath sounds normal. No wheezes/rales/rhonchi noted. Chest nontender. No accessory muscle usage noted or decreased air movement noted. Back: Full range of motion noted. Skin: Skin warm and dry. Normal skin color. Normal skin turgor. No rashes/lesions/lacerations noted. Extremities: Extremities exhibit normal range of motion. Coding Level of Care Code Est Pt Level 4 (43648) Complex visit Add On G2211 Diagnoses Acute sinusitis J01.90 Additional Codes PHQ-9 - 12177 - PHQ-9 Billing: Yes ([id number]) TUAN-7 Assessment Billing - TUAN-7 Assessment Tool: TUAN-7 Assessment 61358 ([id number]) Assessment & Plan Assessment & Plan (1) Acute sinusitis: Code(s): J01.90 - Acute sinusitis, unspecified Category: Medical Plan: The patient's symptoms of rhinorrhea and sinus pain are consistent with an upper respiratory infection, likely acute sinusitis, especially given the precipitating event and subsequent development of symptoms. The pain in the left ear is likely referred from sinus congestion. A course of antibiotics, specifically Augmentin, will be initiated, to be taken twice a day for seven days. A nasal spray will also be prescribed to help alleviate congestion. Plan Plan Patient was informed and verbally consented to the use of an ambient scribe for clinic note documentation during this visit. 1. Acute Sinusitis The patient's symptoms of rhinorrhea and sinus pain are consistent with an upper respiratory infection, likely acute sinusitis, especially given the precipitati ng event and subsequent development of symptoms. The pain in the left ear is likely referred from sinus congestion. A course of antibiotics, specifically Augmentin, will be initiated, to be taken twice a day for seven days. A nasal spray will also be prescribed to help alleviate congestion. Discussion Notes I have discussed with the patient that the symptoms are consistent with an upper respiratory infection, such as sinusitis or bronchitis. I explained that the left ear pain is likely related to congestion from the nose. The plan is to start Augmentin twice daily for seven days and a nasal spray. I informed the patient that the prescriptions were sent to the pharmacy and should be ready in about an hour. We also discussed at-home care, including massaging the sinuses and applying lotion to the nose to soothe irritation. The patient was advised that a follow-up visit may be needed. Medications: New amoxicillin-pot clavulanate 875-125 mg 1 tab PO BID 14 tabs 0RF 7 days fluticasone propionate 50 mcg/actuation (Flonase Allergy Relief) administer into each nostril 1 spray intranasal BID 16 grams 0RF Patient Instructions: Patient Instructions - Take the antibiotic, Augmentin, two times a day for seven days as prescribed. - Use the nasal spray as directed to help with your runny nose and congestion. - You can gently massage your sinuses to help with the pain. - You can apply lotion around your nose if it becomes red or sore from wiping. - Your prescriptions were sent to your pharmacy at [facility] and should be ready in about an hour.
== END 2025-06-10 10:32 | disposition home or self-care (01) ==
LOC: HO.HMCSH 10:16
PROVIDERS: PCP Internal Medicine; Visit Provider Physician Assistant Medical
DX: J01.90 Acute sinusitis, unspecified (principal)

== ENCOUNTER → 2025-06-10 10:16 | Outpatient (BNVA) | payer MEDICARE, SELFPAY | PROVIDERS: PCP Internal Medicine; Visit Provider Physician Assistant Medical | DX: H92.02 Otalgia, left ear (principal); J01.90 Acute sinusitis, unspecified | CPT/HCPCS: 96127; 99212 ==